=== PATIENT | female | born 2000 | race Caucasian/White ===

== ENCOUNTER 2024-01-24 07:52 | Outpatient (CLI) | payer BC, SELFPAY | END 2024-01-24 07:53 | disposition home or self-care (01) | PROVIDERS: PCP Pediatrics; Visit Provider Obstetrics & Gynecology | DX: N92.6 Irregular menstruation, unspecified (principal) | CPT/HCPCS: 36415; 85014; 85018; 86850; 86900; 86901 ==

== ENCOUNTER 2024-02-01 00:12 | Day surgery (SDC) | payer BC, OTHER, SELFPAY ==
[2024-01-23 14:27] VITALS: BMI 23.1
--- NOTE | 2024-01-23 14:34 | PC.NURSE ---
Report to the Outpatient Waiting Room, entrance under the green pavilion located off [facility], at time _0600_ on date _[id number]_. Planned Procedure Time: _0730_.? Time changes happen often and if your time is changed the preop area will call you the afternoon before. - You and your visitor will be asked to self-screen and do not enter if you have any COVID symptoms. Please call surgeon if you need to reschedule. - A mask is optional within the hospital at this time. Patients may have clear liquids (water, carbonated beverages, clear teas, apple juice) until 3 hours prior to surgery with a maximum of 20 ounces. - No food from midnight until time of surgery and no smoking. This includes no chewing gum, candy or mints. Take only the following medications with a SIP of water on the morning of surgery: ___None DO NOT STOP ANY OF YOUR OTHER PRESCRIPTION MEDICATIONS PRIOR TO SURGERY EXCEPT THE FOLLOWING Medications to discontinue per physician ____None Please no make-up, nail hebrew, hairspray, perfume, deodorant, or body powder the day of surgery.? No jewelry (including any body piercings) or valuables the day of surgery, leave them at home.? Please take a shower or bath the night before, or the morning of, surgery with an antibacterial soap.? Wear comfortable, loose fitting clothing.? - Jewelry must be removed prior to entering the operating room.? Rings and piercings that are not removed may be cut off. - The hospital will not accept responsibility for valuables.? - Please leave all valuables, including medications, at home the day of surgery. If you are going home after surgery, a licensed goat driver must drive you home.? - NO public transportation without another adult if you receive anesthesia. - We recommend that an adult stay with you for 24 hours following discharge. - We also recommend that you do not drive, make important decision, drink alcoholic beverages, or take any drugs that were not prescribed by your health care provider for at least 24 hours after your discharge time. Follow any additional instructions given to you from your surgeon. Telephone instructions given to _Grace__and asked if any additional questions and then verbalized understanding. Patient advised to call surgeon office or pre surgery nurse liaison [phone] if any additional questions.
--- NOTE | 2024-01-31 06:49 | PM.IMHP ---
H&P: HPI History of Present Illness Date/Time: 01/31/24 06:49 Chief Complaint: irregular bleeding and pelvic pain Narrative: 23-year-old 0 admitted for hysteroscopy dilatation curettage and laparoscopy. She has had negative imaging she has heavy periods dyspareunia with negative STD testing etc. risks and benefits reviewed including min exclusive of aspiration pneumonia bleeding transfusion infection perforation injury to bowel bladder ureters or internal organs with need for open laparotomy she received the ACOG handout entitled laparoscopy as well as hysteroscopy dilatation curettage respectively. She had all questions answered. She asked to proceed [facility] Social History Social History Smoking status: Never smoker Alcohol intake: current Living arrangements: with family Spiritual care concerns: No Meds Home Medications and Allergies Home Medications ?Medication ?Instructions ?Recorded ?Confirmed ?Type No Home Medications 01/23/24 01/23/24 History Allergies Allergy/AdvReac Type Severity Reaction Status Date / Time No Known Allergies Allergy Unverified 01/23/24 14:26 Exam Const: General: cooperative, healthy appearing and comfortable Nutritional Appearance: average body habitus HENMT: Head: normal to inspection Chest: Chest palpation & inspection: normal inspection of the chest Resp: Effort & Inspection: normal respiratory effort Cardio: Rate: regular rate Rhythm: regular rhythm Heart sounds: S1 normal heart sound present and S2 normal heart sound present GI: Inspection: normal to inspection : External Female Exam: normal external appearance Speculum Exam - Vagina: normal appearance of the vagina Speculum Exam - Cervix: normal appearance of the cervix Bimanual exam- vagina & uterus: Cervical tenderness present Bimanual Exam- Adnexa, other: tender bilaterally Assessment and Plan Assessment and plan (1) Pelvic pain: Code(s): R10.2 - Pelvic and perineal pain Status: Acute (2) Excessive bleeding: Code(s): R58 - Hemorrhage, not elsewhere classified Status: Acute Plan proceed with laparoscopy hysteroscopy and dilatation and curettage
[2024-02-01] VITALS (8 sets, daily range): BP systolic 102–127; BP diastolic 52–74; PULSE 56–96; RESP 12–20; TEMP 36–36.3; O2SAT 98–100
--- NOTE | 2024-02-01 05:32 | P.PNAN_ITS ---
Anes - Eval Pre Procedure Procedure: Operation Date: 02/01/24 07:30 Proposed Procedures p Diagnostic Laparoscopy, - Alfredo Almendarez MD s Hysteroscopy Dilation and Curettage - Alfredo Almendarez MD Date/Time: 02/01/24 05:32 Pre Op Diagnosis: Pelvic pain, dysmenorrhea, heavy bleeding, Patient Data Age: 23 Gender: F Height: 1.8 m Weight: 75 kg Allergies Allergy/AdvReac Type Severity Reaction Status Date / Time No Known Allergies Allergy Unverified 01/23/24 14:26 Home Medications ?Medication ?Instructions ?Recorded ?Confirmed ?Type No Home Medications 01/23/24 01/23/24 History Patient hx anesthesia problems: none Family hx anesthesia problems: none Results Review: All pre-operative results and documents have been reviewed as part of the pre- operative evaluation. [facility] Social History Social History Smoking status: Never smoker Alcohol intake: current Living arrangements: with family Spiritual care concerns: No Exam Day of Procedure 02/01/24 05:32
--- NOTE | 2024-02-01 06:32 | WPDHPUPDATE1 ---
History and Physical Update Update Date/Time: 02/01/24 06:32 History and Physical has been reviewed, including an updated exam of the patient. There are NO changes in the patient's condition. Risks, benefits, and alternatives have been discussed and questions answered. Patient agrees to proceed with procedure.
--- NOTE | 2024-02-01 06:56 | P.PNAN_ITS ---
Anes - Initial Pre Proc Eval Procedure: Operation Date: 02/01/24 07:30 Proposed Procedures p Diagnostic Laparoscopy, - Alfredo Almendarez MD s Hysteroscopy Dilation and Curettage - Alfredo Almendarez MD Date/Time: 02/01/24 06:56 Surgeon: Alfredo Almendarez MD Pre Op Diagnosis: Pelvic pain, dysmenorrhea, heavy bleeding, Patient Data Age: 23 Gender: F Height: 1.8 m Weight: 75 kg Allergies Allergy/AdvReac Type Severity Reaction Status Date / Time No Known Allergies Allergy Unverified 01/23/24 14:26 Home Medications ?Medication ?Instructions ?Recorded ?Confirmed ?Type hydrocodone 5 mg-acetaminophen 325 1 tablet PO Q4H PRN pain #20 tabs 02/01/24 Rx mg tablet Patient hx anesthesia problems: none Family hx anesthesia problems: none Results Review: All pre-operative results and documents have been reviewed as part of the pre- operative evaluation. [facility] Social History Social History Smoking status: Never smoker Alcohol intake: current Living arrangements: with family Spiritual care concerns: No Anes - Eval Final PreProcedure Day of Procedure 02/01/24 06:56 Patient weight: normal Heart: regular rate and rhythm Lungs: clear to auscultation Airway: Mallampati scale class II Neurological: alert and oriented Last oral intake: >/= 8 hours ASA classification: I Emergent: no Anesthetic plan: proceed Anesthesia type and monitoring: general ETT and standard monitoring Results Review: All pre-operative results and documents have been reviewed as part of the pre- operative evaluation. Informed Consent: The patient's anesthetic plan and its attendant risks and benefits were discussed with the patient/family/POA. Questions were solicited and answers provided to the satisfaction of the patient/family/POA.
[2024-02-01] MEDS: LACTATED RINGERS 1,000 ML 30 ML IV CONT ×2 (07:00→08:06)
[2024-02-01] MEDS: KETOROLAC 15 MG/ML VIAL (*BKC) IV PUSH (07:00)
[2024-02-01] MEDS: ACETAMINOPHEN 500 MG TABLET 1000 MG PO (07:00)
--- NOTE | 2024-02-01 08:01 | W.PM.PROC2 ---
Procedure Note - Detailed Date of Procedure 02/01/24 Pre-op Diagnosis Pelvic pain, dysmenorrhea, heavy bleeding, Post-op Diagnosis Other (Pelvic pain/dysmenorrhea/heavy bleeding/endometriosis) Procedure Performed Laparoscopy with destruction lateral areas of endometriosis hysteroscopy/dilatation curettage Surgeon Alfredo Almendarez MD Anesthesia General Indications 23-year-old female with unrelenting pain irregular bleeding refractory to medical therapy Findings [id number] of serosanguineous fluid in cul-de-sac. Endometriosis along the right left uterus sacral ligaments. Endometriosis on the right ovary. Normal-appearing appendix. Gallbladder liver edge. Description of Procedure Patient was prepped and draped in the sterile fashion placed in dorsal position. Under excellent general trach anesthesia speculum placed posterior vagina. The anterior lip of the cervix grasped with a single-tooth tenaculum. The Keating's cannula inserted the cervix and attached to the single-tooth. This would be used later for uterine manipulation. The bladder was emptied of clear urine the weighted speculum was removed. The gloves were changed. An infraumbilical incision made the Veress needle passed in the abdomen. Abdomen filled with CO2 gas [id number]. The 5mm trocar advanced under direct visualization assuring no injury. Patient placed in Trendelenburg and a suprapubic incision made. The 5mm trocar advanced under direct visualization assuring no injury. About 30cc of serosanguineous fluid was seen in the cul-de-sac and this was removed and then irrigated clean. Multiple areas of endometriosis were seen uterosacral ligament. These were point cauterized at 30 w per 2nd monopolar cautery. The right ovary couple spots endometriosis the at and 8 they were cauterized and destroyed. Irrigation undertaken until clear no other abnormalities were seen. The appendix and gallbladder and liver edge all appeared within normal limits. The lower site removed. The gas removed from the abdomen. The upper site removed. The incisions closed with 4-0 Monocryl and glue. Attention was then turned to the hysteroscopy portion The uterus sounded to 7 and cm. Serial dilatation with fragmented dilators performed followed by passage of the 5mm visualizing hysteroscope using normal saline as visualizing medium. Each fallopian tube os could be seen and appeared within normal limits and there were no abnormality seen in the uterus. The uterus was then scraped over the entire 360? until a good grating sound was heard. The instruments withdrawn the patient was awakened. She went to recovery in satisfactory condition. All sponge, needle, instrument counts were correct. There were no immediate complications noted Estimated Blood Loss 5 Packing No Pathology Yes (Endometrial curettings) Complications No immediate complications Condition Stable Disposition PACU
[2024-02-01] MEDS: oxyCODONE HCL (*CRX) 5 MG TAB IR PO (08:49)
--- OUTSIDE RECORDS SUMMARY | 2024-02-08 00:40 | XMS_ITS | Encounter Summary ---
Author Organization [facility] Address [address] [place] [address] Care Team Providers Care Director Of Resource Development Name Role Phone Gloria Mancera MD Primary Care Provider Reason for Visit * Reason Comments Establish Care Encounter Details Date Type Department Care Team (Late st Contact Info) Description 09/18/2023 9:00 AM CDT Office Visit [facility] Medical [facility] - Family Medicine [address] [phone] Gloria Mancera MD [address] [place] [address] Encounter to establish care (Primary Dx); Healthcare maintenance Social History Tobacco Use Types Packs/Day Years Used Date Smoking Tobacco: Never Smokeless Tobacco: Never Tobacco Cessation:Counseling Given: No Alcohol Use Standard Drinks/Week Comments Yes 0 (1 standard drink = 0.6 oz pur e alcohol) occationally, few x a month PHQ-2 Answer Date Recorded Patient Health Questionnaire-2 Score 0 09/18/2023 Sex and Gender Information Value Date Recorded Sex Assigned at Not on file Gender Identity Not on file Sexual Orientation Not on file documented as of this encounter Last Filed Vital Signs Vital Sign Reading Time Taken Comments Blood Pressure 103/68 09/18/2023 9:20 AM CDT Pulse 69 09/18/2023 9:20 AM CDT Temperature 36.4 ??C (97.5 ??F) 09/18/2023 9:20 AM CD T Respiratory Rate - - Oxygen Saturation 97% 09/18/2023 9:20 AM CDT Inhaled Oxygen Concentration - - Weight 77.2 kg (170 lb 3.2 oz) 09/18/2023 9:20 A M CDT Height 180.3 cm (5' 11 ) 09/18/2023 9:20 AM CDT Body Mass Index 23.74 09/18/2023 9:20 AM CDT documented in this encounter Patient Instructions * Patient Instructions* Gloria Mancera MD - 09/18/2023 9:27 AM CDT It is important for you to feel that you have received the best care possible today. If for any reason you feel your care was not exceptional please let us know. You may do this by calling and requesting to leave a message for me to return your call or you may also receive a satisfaction survey viae-mail or U.S. Mail. I encourage you to respond to this confidential survey as your feedback helps us provide that exceptional care you deserve. It is very important that you compare your medication list from your visit with actual medications you have at home. If there are any discrepancies or you are uncertain what a certain medication is and why you are taking it please let us know as soon as possible. Thank you for choosing us to provide your healthcare needs! PETTY Caruso Recommended to continue healthy lifestyle Recommended exercises 150 minutes per week Patient will continue visits with her OB and G Obtain fasting labs documented in this encounter Progress Notes * Gloria Mancera MD - 09/18/2023 10:18 AM CDT Date: 09/18/2023 Pt Name: Lillie Ohara : 2000 AGE: [age] year old SEX: female CC: Establish Care History of Present Illness:22 year oldyr old, female that presents to this office to establish carewith new primary care physician. Patient in usual state of health. Preventive-patient states that had last Pap smear with OB and G Dr. Nelsy Denise summer last year, currently patient is not sexually active, periods are regular lasting 5 days profuse every 28 days, patient sees dentist/dental cleaning 2 times a year, patient does not use contact lenses or glasses. 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 No Known Allergies There is no problem list on file for this patient. No current outpatient medications on file. No current facility-administered medications for this visit. Past Medical History: Diagnosis Date Injury of face and neck 04/27/08 Menorrhagia with irregular cycle 10/25/2015 Preoperative examination, unspecified 06/11/07 dental Routine infant or child health check 05/14/07 Past Surgical History: Procedure Laterality Date Cyst Removal thyroid Social History Socioeconomic History Marital status: Single Spouse name: Not on file Number of children: 0 Years of education: Not on file Highest education level: Not on file Occupational History Not on file Tobacco Use Smoking status: Never Smokeless tobacco: Never Vaping Use Vaping Use: Never used Substance and Sexual Activity Alcohol use: Yes Comment: occationally, few x a month Drug use: Never Sexual activity: Not Currently Partners: Male Other Topics Concern Service No Blood Transfusions No Caffeine Concern No Occupational Exposure No Hobby Hazards No Sleep Concern No Stress Concern No Weight Concern No Special Diet No Back Care Not Asked Exercise No Bike Helmet Not Asked Seat Belt Yes Self-Exams Not Asked Social History Narrative Not on file Social Determinants of Health Financial Resource Strain: Not on file Food Insecurity: Not on file Transportation Needs: Not on file Stress: Not on file Housing Stability: Not on file Family History Problem Relation Name Age of Onset None Known Father Allergies Paternal Grandmother The patient's past medical history, family history, social history, current medications, and allergies were reviewed with the patient. ROS: A comprehensive review of systems was negative except as described in HPI. PHYSICAL EXAM: BP 103/68 (BP Location: Left arm, Patient Position: Sitting, BP Cuff Size: Adult) Pulse 69 Temp97.5 ??F (36.4 ??C) (Temporal) Ht 1.803 m (5' 11 ) Wt 77.2 kg (170 lb 3.2 oz) SpO2 97% BP 103/68 (BP Location: Left arm, Patient Position: Sitting, BP Cuff Size: Adult) Pulse 69 Temp97.5 ??F (36.4 ??C) (Temporal) Ht 1.803 m (5' 11 ) Wt 77.2 kg (170 lb 3.2 oz) LMP 08/31/2015 (Exact Date) SpO2 97% BMI 23.74 kg/m?? General appearance: alert, cooperative, no distress Eyes: sclera and conjunctiva clear, EOMI and PERRLA, lids normal Ears: canals clear, tympanic membranes normal, hearing intact to voice Nose: no septal perforation,no discharge Throat:uvula midline, no mucous membrane abnormalities, no exudate Neck: range of motion is intact, no masses, thyroid not enlarged, no adenopathy Lungs: breath sounds normal and symmetric; no rales or wheezes Heart: regular rhythm, normal S1 and S2, without murmurs, gallops or rubs Circulation: Carotid and DP pulses are intact and symmetrical,no carotid bruits Abdomen: soft without mass, non-tender, with normal bowel sounds, No hepatosplenomegaly. Extremities: no clubbing, cyanosis or edema Musculosketal :range of motion normal without inflammation, effusion or deformity,no muscle atrophy Neurologic: Cranial nerves [id number], DTR symmetrical Skin: Tattoos Results : No results found for this visit on 09/18/23. ASSESSMENT: ICD-10-CM 1. Encounter to establish care Z00.00 2. Healthcare maintenance Z00.00 CBC WITH DIFFERENTIAL COMPREHENSIVE METABOLIC PANEL LIPID PROFILE HEPATITIS C ANTIBODY W RFLX PCR HIV-1 HIV-2 ANTIBODY + HIV P24 AG PANEL PLAN: Discussed routine health maintenance: labs. Discussed healthy lifestyle choices: diet and exercise. Orders Placed This Encounter CBC WITH DIFFERENTIAL COMPREHENSIVE METABOLIC PANEL LIPID PROFILE HEPATITIS C ANTIBODY W RFLX PCR HIV-1 HIV-2 ANTIBODY + HIV P24 AG PANEL Return in about 1 year (around 09/17/2024), or if symptoms worsen or fail to improve, for annual physical exam . Patient Instructions It is important for you to feel that you have received the best care possible today. If for any reason you feel your care was not exceptional please let us know. You may do this by calling and requesting to leave a message for me to return your call or you may also receive a satisfaction survey viae-mail or U.S. Mail. I encourage you to respond to this confidential survey as your feedback helps us provide that exceptional care you deserve. It is very important that you compare your medication list from your visit with actual medications you have at home. If there are any discrepancies or you are uncertain what a certain medication is and why you are taking it please let us know as soon as possible. Thank you for choosing us to provide your healthcare needs! PETTY Caruso Recommended to continue healthy lifestyle Recommended exercises 150 minutes per week Patient will continue visits with her OB and G Obtain fasting labs Gloria Mancera MD Disclaimer: This dictation was created using voice recognition software. I have made every reasonable attempt to avoid errors. Please note that there may be variance in spelling, grammar and syntax because of the voice recognition system and hardware. If there are any concerns please contact Yvette Reddydirectly * Teri Wharton MA - 09/18/2023 9:26 AM CDT Images from the original note were not included. FLORENTIN-7 {Vanishing tip- Click here to Update FLORENTIN-7 then refresh note (Ctrl+F11) 09/18/2023 9:23 AM FLORENTIN-7 Nervous? 1 Control worrying? 1 Worry too much? 1 Trouble relaxing? 1 Restless? 1 Irritable? 0 Afraid? 0 Total Score (0-4: Minimal; 5-9: Mild; 10-14: Moderate; 15 or greater: Severe) 5 Screenings Future Falls: Depression: PHQ-2:Patient Health Questionnaire-2 Score: 0 PHQ-9: documented in this encounter Plan of Treatment Scheduled Orders Name Type Priority Associated Diagnoses Orde r Schedule CBC WITH DIFFERENTIAL Lab Routine Healthcare maintenance Ordered: 09/18/2023 COMPREHENSIVE METABOLIC PANEL Lab Routine Healthcare maintenance Ordered: 09/18/2023 LIPID PROFILE Lab Routine Healthcare maintenance Ordered: 09/18/2023 HEPATITIS C ANTIBODY W RFLX PCR Lab Routine Healthcare maintenance Ordered: 09/18/2023 HIV-1 HIV-2 ANTIBODY + HIV P24 AG PANEL Lab Routine Healthcare maintenance Ordered: 09/18/2023 documented as of this encounter Goals Goal Patient Goal Type Associated Problems Recent Progress Patient-Stated? Author Use safety retraint in car Lifestyle On track( 020 10:10 AM CDT) No Gaye Westbrook RN documented as of this encounter Visit Diagnoses Diagnosis Encounter to establish care- Primary Reserved for inherently not codable concepts WITHOUT codable children Healthcare maintenance Routine general medical examination at a health care facility documented in this encounter Care Teams Director Of Resource Development Relationship Specialty Start Date End Date Gloria Mancera MD [address] [place] [address] PCP - General Internal Medicine 09/18/23 documented as of this encounter
--- OUTSIDE RECORDS SUMMARY | 2024-02-08 00:40 | XMS_ITS | Encounter Summary ---
Author Organization [facility] Address [address] [place] [address] Care Team Providers Care Concrete Pump Operator Name Role Phone Ivis Montana MD Unavailable Antonieta Moon MD Primary Care Provider [phone] Reason for Visit * Reason Onset Date Comments Patient Requested Call 08/16/2015 Encounter Details Date Type Department Care Team (Late st Contact Info) Description 08/16/2015 Telephone [facility] - Pediatrics [address] [place] [phone] Antonieta Moon MD [address] [place] [phone] Patient Requested Call Social History Tobacco Use Types Packs/Day Years Used Date Smoking Tobacco: Never Assessed Sex and Gender Information Value Date Recorded Sex Assigned at Not on file Gender Identity Not on file Sexual Orientation Not on file documented as of this encounter Miscellaneous Notes * Telephone Encounter - Tata Saab RN - 08/16/2015 10:44 AM CDT Pt has been on OC x 3 months. Still having very irregular, heavy, long periods. Bleeding lasting upto 28 days at a time. Feeling fatigued, dizzy, sob. Pale colored. Appt made for this afternoon. * Telephone Encounter - SimonLaura gutierrez - 08/16/2015 9:50 AM CDT Mother is calling because patient started her period oct. She was seen for heavy bleeding and started on BC medication. Patient is still having irregular periods lasting a long time. Mother has noticed patient being really pale and acting fatigue. Mom would like to know if she needs to have an appointment or just labs drawn, please advise. Mother has been keeping her hydrated. symptoms include Fatigue Pale skin Dizziness Eyes are sinking in. documented in this encounter Plan of Treatment Not on file documented as of this encounter Goals Goal Patient Goal Type Associated Problems Recent Progress Patient-Stated? Author Use safety retraint in car Lifestyle On track( 020 10:10 AM CDT) No Gaye Westbrook RN documented as of this encounter Visit Diagnoses Not on filedocumented in this encounter Care Teams Concrete Pump Operator Relationship Specialty Start Date End Date Ivis Montana MD PCP - Pediatrics 02/23/09 11/10/19 Antonieta Moon MD PCP - General Pediatrics 01/05/11 09/17/23 documented as of this encounter
--- OUTSIDE RECORDS SUMMARY | 2024-02-08 00:40 | XMS_ITS | Encounter Summary ---
Author Organization [facility] Address [address] [place] [address] Care Team Providers Care Ostomy Nurse Name Role Phone Ivis Montana MD Unavailable Antonieta Moon MD Primary Care Provider [phone] Encounter Details Date Type Department Care Team (Latest Contact Info) Description 11/07/2019 Travel Social History Tobacco Use Types Packs/Day Years Used Date Smoking Tobacco: Never Assessed Sex and Gender Information Value Date Recorded Sex Assigned at Not on file Gender Identity Not on file Sexual Orientation Not on file COVID-19 Exposure Response Date Recorded In the last month, have you been in contact with someone who was confirmed or suspected to have Coronavirus / COVID-19? No / Unsure 11/07/2019 2:25 PM CDT documented as of this encounter Plan of Treatment Not on file documented as of this encounter Goals Goal Patient Goal Type Associated Problems Recent Progress Patient-Stated? Author Use safety retraint in car Lifestyle On track( 020 10:10 AM CDT) No Gaye Westbrook RN documented as of this encounter Visit Diagnoses Not on filedocumented in this encounter Care Teams Ostomy Nurse Relationship Specialty Start Date End Date Ivis Montana MD PCP - Pediatrics 02/23/09 11/10/19 Antonieta Moon MD PCP - General Pediatrics 01/05/11 09/17/23 documented as of this encounter
--- OUTSIDE RECORDS SUMMARY | 2024-02-08 00:40 | XMS_ITS | Encounter Summary ---
Author Organization [facility] Address [address] [place] [address] Care Team Providers Care Associate Director Qa Name Role Phone Antonieta Moon MD Primary Care Provider [phone] Reason for Visit * Reason Onset Date Comments Record Request 03/06/2023 Encounter Details Date Type Department Care Team (Late st Contact Info) Description 03/06/2023 Telephone [facility] Medical [facility] - Pediatrics [address] [place] [phone] Antonieta Moon MD [address] [place] [phone] Record Request Social History Tobacco Use Types Packs/Day Years Used Date Smoking Tobacco: Never Assessed Sex and Gender Information Value Date Recorded Sex Assigned at Not on file Gender Identity Not on file Sexual Orientation Not on file documented as of this encounter Miscellaneous Notes * Telephone Encounter - Kaur Delgadillo - 03/06/2023 12:46 PM EDGE SANDER Patient called requesting immunization record to be sent via [employer]. Immunization record was sent on 03/06/2023. SANDER documented in this encounter Plan of Treatment Not on file documented as of this encounter Goals Goal Patient Goal Type Associated Problems Recent Progress Patient-Stated? Author Use safety retraint in car Lifestyle On track( 020 10:10 AM CDT) No Gaye Westbrook RN documented as of this encounter Visit Diagnoses Not on filedocumented in this encounter Care Teams Associate Director Qa Relationship Specialty Start Date End Date Antonieta Moon MD PCP - General Pediatrics 01/05/11 09/17/23 documented as of this encounter
--- OUTSIDE RECORDS SUMMARY | 2024-02-08 00:40 | XMS_ITS | Encounter Summary ---
Author Organization [facility] Address [address] [place] [address] Care Team Providers Care Registry Nurse Name Role Phone Ivis Montana MD Unavailable Antonieta Moon MD Primary Care Provider [phone] Reason for Visit * Reason Comments Headache c/o headache started yesterday. Front center of forehead. Tylenol no help. Cough cough this morning. Loose phlegmy cough. No nasal s/s. No fever. Encounter Details Date Type Department Care Team (Late Contact Info) Description 03/25/2012 3:45 PM SUPERVISOR TUMBLERS Office Visit [facility] - Pediatrics [address] [place] [phone] Antonieta Moon MD [address] [place] [phone] Headache (Primary Dx); Cough Social History Tobacco Use Types Packs/Day Years Used Date Smoking Tobacco: Never Assessed Sex and Gender Information Value Date Recorded Sex Assigned at Not on file Gender Identity Not on file Sexual Orientation Not on file documented as of this encounter Last Filed Vital Signs Vital Sign Reading Time Taken Comments Blood Pressure - - Pulse - - Temperature 37.4 ??C (99.4 ??F) 03/25/2012 3:59 PM CS T Respiratory Rate - - Oxygen Saturation - - Inhaled Oxygen Concentration - - Weight 38.9 kg (85 lb 12.8 oz) 03/25/2012 3:59 P M SUPERVISOR TUMBLERS Height - - Body Mass Index - - documented in this encounter Progress Notes * Antonieta Moon MD - 03/26/2012 3:00 PM CST Lillie Ohara is a 11 y.o. female who presents today for a complaint of headache and cough. Headachestarted yesterday. Sharp pain to front center of pain. Cough started today. Described as phlemy sounding. Associated with fever? No Associated with URI sx? No Post nasal drainage? No Wheezing? No Appetite decreased. Intervention tried: none PE: Gen-well appearing HEENT- throat without erythema or cobblestoning. Tm's pearly Neck- supple, no LAD Resp-CTA CV nL S1S2 without murmur Neuro: CN intact, nL finger to nose, nL strength in all extrem, Rhomberg negative meningeal signs negative Impression: 1. Headache 2. Cough ---viral? Plan: Sx care with 400 mg ibuprofen, increase fluids. RVISOR TUMBLERS documented in this encounter Plan of Treatment Not on file documented as of this encounter Visit Diagnoses Diagnosis Headache(784.0)- Primary Headache Cough documented in this encounter Care Teams Registry Nurse Relationship Specialty Start Date End Date Ivis Montana MD PCP - Pediatrics 02/23/09 11/10/19 Antonieta Moon MD PCP - General Pediatrics 01/05/11 09/17/23 documented as of this encounter
--- OUTSIDE RECORDS SUMMARY | 2024-02-08 00:40 | XMS_ITS | Encounter Summary ---
Author Organization [facility] Address [address] [place] [address] Care Team Providers Care Community Development Specialist Name Role Phone Ivis Montana MD Unavailable Antonieta Moon MD Primary Care Provider [phone] Reason for Visit * Reason Comments Sore Throat Encounter Details Date Type Department Care Team (Late st Contact Info) Description 02/24/2016 4:15 PM EYEGLASS ASSEMBLER Office Visit [facility] - Pediatrics [address] [place] [phone] Antonieta Moon MD [address] [place] [phone] Acute pharyngitis, unspecified etiology (Primary Dx) Social History Tobacco Use Types Packs/Day Years Used Date Smoking Tobacco: Never Assessed Sex and Gender Information Value Date Recorded Sex Assigned at Not on file Gender Identity Not on file Sexual Orientation Not on file documented as of this encounter Progress Notes * Antonieta Moon MD - 02/24/2016 4:29 PM CST Lillie Ohara. 15 y.o., female, here for evaluation of sore throat. Symptoms started last night. Fever: No Runny Nose: No Congestion: No Cough: No, Headache: No Abd Pain: No Rash: No Sleep: good Appetite: fair Fluids: good Sick contacts with Strep: No Medications: reviewed PE: Alert NAD SHEENT: Skin: no observable rash Ears: Left: Normal Right: Normal Throat:injected Tonsils: mildly red, no exudates Neck: supple, mildy tender ant LAD Heart: normal S1, S2, no murmurs or gallops. Lungs: Clear to auscultation and Normal breath sounds bilaterally Rapid Strep: negative Impression: Pharyngitis--likely viral Plan: supportive care Throat culture sent Fever control and encourage fluids. Follow up prn. LASS ASSEMBLER documented in this encounter Plan of Treatment Scheduled Orders Name Type Priority Associated Diagnoses Orde r Schedule CULTURE AEROBIC Microbiology Routine Acute pharyngitis, unspecified etiology Ordered: 02/24/2016 documented as of this encounter Goals Goal Patient Goal Type Associated Problems Recent Progress Patient-Stated? Author Use safety retraint in car Lifestyle On track( 020 10:10 AM CDT) No Gaye Westbrook RN documented as of this encounter Procedures Procedure Name Priority Date/Time Associated Diagnosis Comments STREP A SCREEN - POINT OF CARE (AMB) Routine 02/24/2016 4:15 PM EYEGLASS ASSEMBLER Acute pharyngitis, unspecified etiology documented in this encounter Results * STREP A SCREEN - POINT OF CARE (AMB) (02/24/2016 4:15 PM EYEGLASS ASSEMBLER) Strep A Rapid POCT Negative Negative Strep A Internal Control Present Other ENTIRE THROAT (SURFACE REGION OF NECK) / Unknown 02/24/2016 4:15 PM EYEGLASS ASSEMBLER Antonieta Moon MD LAB - POINT OF CARE ORDERABLES documented in this encounter Visit Diagnoses Diagnosis Acute pharyngitis, unspecified etiology- Primary documented in this encounter Care Teams Community Development Specialist Relationship Specialty Start Date End Date Ivis Montana MD PCP - Pediatrics 02/23/09 11/10/19 Antonieta Moon MD PCP - General Pediatrics 01/05/11 09/17/23 documented as of this encounter
--- OUTSIDE RECORDS SUMMARY | 2024-02-08 00:40 | XMS_ITS | Encounter Summary ---
Author Organization [facility] Address [address] [place] [address] Care Team Providers Care Chemical Research Engineer Name Role Phone Ivis Montana MD Unavailable Antonieta Moon MD Primary Care Provider [phone] Reason for Visit * Reason Comments School Physical 6th Encounter Details Date Type Department Care Team (Late st Contact Info) Description 08/04/2013 11:00 AM CDT Office Visit [facility] Medical [facility] - Pediatrics [address] [place] [phone] Antonieta Moon MD [address] [place] [phone] Well child check (Primary Dx); Need for prophylactic vaccination and inoculation against other specified disease; Need for prophylactic vaccination with combined luxwhyjonb-jlnzfag-ir rtussis (DTP) vaccine Social History Tobacco Use Types Packs/Day Years Used Date Smoking Tobacco: Never Assessed Sex and Gender Information Value Date Recorded Sex Assigned at Not on file Gender Identity Not on file Sexual Orientation Not on file documented as of this encounter Last Filed Vital Signs Vital Sign Reading Time Taken Comments Blood Pressure 104/56 08/04/2013 11:36 AM CDT Pulse 72 08/04/2013 10:59 AM CDT Temperature - - Respiratory Rate - - Oxygen Saturation - - Inhaled Oxygen Concentration - - Weight 48.3 kg (106 lb 6.4 oz) 08/05/19 14 10:59 AM CDT Height 164.5 cm (5' 4.75 ) 08/04/2013 1 0:59 AM CDT Body Mass Index 17.84 08/04/2013 10:59 AM CDT Body Mass Index Percentile 48.68% 08/04 10:59 AM CDT Growth Chart: CDC (Girls, 2- 20 Years) documented in this encounter Patient Instructions * Patient Instructions* Tata Saab RN - 08/04/2013 11:45 AM CDT YOUR GROWING PRETEEN CHILD Child???s Name: Lillie Ohara Today???s Date: 08/04/2013 32.5% systolic and 22.1% diastolic of BP percentile by age, sex, and height. BP 104/56 Pulse 72 Wt 48.263 kg (106 lb 6.4 oz) BMI 17.84 kg/m2 Wt Readings from Last 3 Encounters: 08/04/13 48.263 kg (106 lb 6.4 oz) (79 %*, Z = 0.79) 03/25/12 38.919 kg (85 lb 12.8 oz) (71 %*, Z = 0.57) 07/20/11 41.277 kg (91 lb) (89 %*, Z = 1.21) * Growth percentiles are based on CDC 2-20 Years data. Ht Readings from Last 3 Encounters: 08/04/13 1.645 m (5' 4.75 ) (98 %*, Z = 2.04) 12/06/10 1.461 m (4' 9.5 ) (97 %*, Z = 1.94) 11/22/10 1.48 m (4' 10.25 ) (99 %*, Z = 2.24) * Growth percentiles are based on CDC 2-20 Years data. Body mass index is 17.84 kg/(m^2). 49%ile (Z=-0.03) based on CDC 2-20 Years BMI-for-age data using vitals from 08/04/2013. 79%ile (Z=0.79) based on CDC 2-20 Years [id number] data using vitals from 08/04/2013. 98%ile (Z=2.04) based on CDC 2-20 Years [id number] data using vitals from 08/04/2013. IMMUNIZATIONS At the time of high school physical your child may receive a Tdap booster. Other immunizations which we recommend, but that are not required are Menactra (protects again one type of bacterial meningitis), Gardisil (protects girls and women against Human Papilloma Virus), and Hepatitis A vaccine if not already given. PHYSICAL DEVELOPMENT Typically, girls show signs of pubert 2 years earlier than boys. During early adolescence, most girls experience a rapid growth spurt, changes in fat distribution, and development of secondary sexualcharacteristics such as pubic hair and breasts. For most boys, the early adolescent period guerra the beginning of the biological changes of puberty, including testicular growth, voice changes, and development of acne, pubic hair, and nocturnal emissions. The onset of puberty and rate of sexual development can vary greatly and pre-teens should be reassurred that their own growth and development are normal. During adolescence, some teens engage in physical activity regularly and become fit while other choose sedentary behaviors such as watching TV and playing video games. These behaviors are often predictors of adult lifestyles, so it is important to recognoze these behaviors and refocus their energy into healthier pursuits such as participating in physical activities at school or after school. COGNITIVE AND MORAL DEVELOPMENT Young adolescents have increasing potential for abstract, complex thinking, although their cognition still focuses primarily on the concrete and the present, the here and now. Young teens tend to see individuals and their behaviors in somewhat rigid terms as good or bad, or right or wrong. They have not yet developed an understanding of complex relationships or long-term consequences. SOCIAL/EMOTIONAL DEVELOPMENT Puberty is a time of intense changes in emotions. Young adolescents may display erratic or urrutia behavior, especially with the stressses of academic achievement, sports performance, peer pressure, and changing family relationships. Families need to continue supervising the adolescent and setting appropriate limits. At the same time, they need to affirm their adolescent's growing self-efficacy and promote skills and confidence in decision making. SCHOOL As adolescents make the transition to middle school or high school and have to cope with less adultsupport and greater anonymity, they frequently experience anxiety. Scholastic demands require students to be more organized and efficient. There may be a reduction in overall academic performances for males and females. Truancy and school drop out rates also tend to rise in early adolescence. Some incentives to stay in school include participating in in-school and after-school activities such as sports, music, drama, journalism, or volunteering. School also becomes the primary setting through which peer group standards or expectations are communicated. The attraction of peer groups is a powerful phenomenon. Preparing young adolescents to deal with increasing peer pressure is an important part of health supervison. RISKY BEHAVIOR Although exploration and experimentation, usually in the company of peers, serve important developmental purposes, adolescent experimentation can also have serious health consequences. Experimentation with alcohol and tobacco are significant health concerns during early adolescence. INJURY PREVENTION More than half the injury-related deaths in this age group involve motor vehicles, with the adolscent as passenger, pedestrian, or cyclist. Few young adolescents take measures to reduce their risk ofinjury. It is important for adolescents to always wear their safety belt and helmet. RECOMMENDED READING ON PUBERTY FOR GIRLS The care and Keeping of you by [employer]. documented in this encounter Progress Notes * Antonieta Moon MD - 08/04/2013 11:00 AM CDT SCHOOL AGE [facility] Nurse Note Parental Concerns: Hormonal changes.--had stomach cramps and then breast tenderness and nausea for 1 day a couple weeks ago Diet: Milk 2%, 8 ounces per day.+cheese, yogurt Vegetables: good, fruits: good, meats: good, Dental: Tooth brushing twice daily: Yes Regular dental visits: Yes Concerns re: Hearing / Vision no //////////////////////////////////////////////////////////////////////////////// ////////////////////////////////////////// Note: Phx:anxiety Medications: none Exercise/Sports: Dance With exercise, is there Chest pain? No, Shortness of breath? No, Dizziness? No Problems/Injuries to any joints? No Hx of concussion? No Fhx of sudden cardiac ? No School: Grade:6, Grades: good ROS: Stomachaches: No Headaches: No Constipation/Diarrhea: No Girls: Menarche no Physical Exam: Wt Readings from Last 3 Encounters: 08/04/13 48.263 kg (106 lb 6.4 oz) (79 %*, Z = 0.79) 03/25/12 38.919 kg (85 lb 12.8 oz) (71 %*, Z = 0.57) 07/20/11 41.277 kg (91 lb) (89 %*, Z = 1.21) * Growth percentiles are based on CDC 2-20 Years data. Ht Readings from Last 3 Encounters: 08/04/13 1.645 m (5' 4.75 ) (98 %*, Z = 2.04) 12/06/10 1.461 m (4' 9.5 ) (97 %*, Z = 1.94) 11/22/10 1.48 m (4' 10.25 ) (99 %*, Z = 2.24) * Growth percentiles are based on CDC 2-20 Years data. 91.3% systolic and 34.3% diastolic of BP percentile by age, sex, and height. 79%ile (Z=0.79) based on CDC 2-20 Years [id number] data using vitals from 08/04/2013. 98%ile (Z=2.04) based on CDC 2-20 Years [id number] data using vitals from 08/04/2013. BP 123/60 Pulse 72 Wt 48.263 kg (106 lb 6.4 oz) BMI 17.84 kg/m2 GENERAL: Alert, NAD EYES: PERRLA, EOMI, red reflex bilaterally EARS: TM's wnl NOSE: nasal passages clear NECK: supple, no masses, no lymphadenopathy RESP: clear to auscultation bilaterally CV: RRR, normal S1/S2, no murmurs, clicks, or rubs. ABD: soft, nontender, no masses, no hepatosplenomegaly, normal bowel sounds : normal female exam, Ruben III EXTREMITIES: Full range of motion of all extremities SPINE: Straight SKIN: no rashes or lesions Impression: 1. Well child with normal growth and development. Plan: Anticipatory guidance discussed included nutrition, safety, dentist, limiting media, exercise. Vaccines: Meningococcal, TDaP BMI> 85%: No Classification of weight: healthy BMI trajectory: a decrease Blood Pressure interpretation:recheck normal Follow up in 1 year. documented in this encounter Plan of Treatment Not on file documented as of this encounter Visit Diagnoses Diagnosis Well child check- Primary Routine or child health check Need for prophylactic vaccination and inoculation against other specified disease Need for prophylactic vaccination with combined tkukuewlcf-gqwndve-hkrieutav (DTP) vaccine documented in this encounter Care Teams Chemical Research Engineer Relationship Specialty Start Date End Date Ivis Montana MD PCP - Pediatrics 02/23/09 11/10/19 Antonieta Moon MD PCP - General Pediatrics 01/05/11 09/17/23 documented as of this encounter
--- OUTSIDE RECORDS SUMMARY | 2024-02-08 00:40 | XMS_ITS | Encounter Summary ---
Author Organization [facility] Address [address] [place] [address] Care Team Providers Care Core Feeder Name Role Phone Ivis Montana MD Unavailable Antonieta Moon MD Primary Care Provider [phone] Reason for Visit * Reason Comments Pain Knee Right knee pain Encounter Details Date Type Department Care Team (Late st Contact Info) Description 03/31/2016 1:35 PM MEDICAL DOCTOR - 03/31/2016 2:33 PM MEDICAL DOCTOR Hospital Encounter [facility] [address] [facility] [place] [address] Jayce Chadwick MD [address] [facility] [place] [address] Discharge Disposition: Home or Self Care Social History Tobacco Use Types Packs/Day Years Used Date Smoking Tobacco: Never Assessed Sex and Gender Information Value Date Recorded Sex Assigned at Not on file Gender Identity Not on file Sexual Orientation Not on file documented as of this encounter Discharge Instructions * Patient Instructions* Rosanne Doan MD - 03/31/2016 3:07 PM MEDICAL DOCTOR Images from the original note were not included. Adult and Pediatric Sports Medicine Lillie Ohara 03/31/2016 Thank you for coming in to see us today for your knee pain. This is a school excuse note for today. We recommend that you try the following for your injury: icing, physical therapy exercises and anti-inflammatory medications Please call our clinic to make an appointment if your symptoms are not improving, or if something about your condition significantly changes. [facility] Orthopaedic office contact information: [facility] [address] [place] [address]. [address] [facility] 2nd Floor, [address] [facility] [address] [address] [facility] [place] [address] [facility] [address] [place] [address] [address], [place] [address] Please contact Pablo Araujo (clinical nurse specialist) at or email: [email or web address] if you have any further questions or concerns. Sincerely, Jayce Chadwick MD [email or web address] CAL DOCTOR documented in this encounter Medications at Time of Discharge Medication Sig Dispensed Refills Start Date End Date ferrous sulfate 325 (65 FE) MG tablet Take 1 Tab by mouth daily with food 30 Tab 4 08/17/2015 11/11/2019 hydrocortisone (HYTONE) 2.5 % ointment Apply to affected area 2 times daily Apply sparingly to affected areas 30 g 0 08/16/2015 11/11/2019 ibuprofen (MOTRIN) 200 MG tablet Take 400 mg by mouth every 12 hours as needed for Pain 11/11/2019 norgestimate-ethinyl estradiol (MONONESSA) 0.25-35 MG-MCG tablet Take 1 Tab by mouth once daily 1 Packet 11 05/11/2015 11/11/2019 documented as of this encounter Progress Notes * Jayce Chadwick MD - 03/31/2016 2:33 PM CST Jayce Chadwick MD ORTHOPAEDIC SPORTS MEDICINE [address] [place] [id number] Dept: [phone] Antonieta Moon MD ; Today we had the pleasure of seeing Lillie Ohara in [facility] for evaluation of her right knee injury. Lillie Ohara is a 15 y.o. female who states she has diffuse, anterior knee pain after it popped while walking in the de, Denies any twisting injury. No mechanical symptoms or instability. She is a competitive dancer. The symptoms are activity-related and improved with rest. No fevers, chills,numbness, paresthesias or gross motor weakness. They have tried icing for their symptoms. SANE Score (0-100): 40 Medications Current Outpatient Prescriptions on File Prior to Encounter Medication Sig Dispense Refill ??? hydrocortisone (HYTONE) 2.5 % ointment Apply to affected area 2 times daily Apply sparingly to affected areas 30 g 0 ??? ibuprofen (MOTRIN) 200 MG tablet Take 400 mg by mouth every 12 hours as needed for Pain ??? norgestimate-ethinyl estradiol (MONONESSA) 0.25-35 MG-MCG tablet Take 1 Tab by mouth once daily1 Packet 11 ??? ferrous sulfate 325 (65 FE) MG tablet Take 1 Tab by mouth daily with food 30 Tab 4 No current facility-administered medications on file prior to encounter. Allergies as of 03/31/2016 ??? (No Known Allergies) Past Medical History Diagnosis Date ??? Injury of face and neck 04/27/08 ??? Menorrhagia with irregular cycle 10/25/2015 ??? Preoperative examination, unspecified 06/11/07 dental ??? Routine or child health check 05/14/07 Past Surgical History Procedure Laterality Date ??? Cyst removal thyroid 15 Point review of systems was otherwise negative as reviewed today. Social History Occupational History ??? Not on file. Social History Main Topics ??? Smoking status: Not on file ??? Smokeless tobacco: Not on file ??? Alcohol use: Not on file ??? Drug use: Not on file ??? Sexual activity: Not on file Family History Family History Problem Relation Age of Onset ??? Allergies Paternal Grandmother Physical Exam: The patient is awake, alert, oriented and they are pleasant to speak with. There is no pain with rotation of the right or left hip. There is a negative straight leg raise bilaterally. Gait is antalgic. Evaluation of the uninjured left knee noted no skin lesions, neurovascularly intact. There is no t enderness/swelling/deformity. Ligamentously stable. Full range of motion. Quadriceps strength is 5/5. The right knee is neurovascularly intact with no active skin lesions. There is no effusion. There is tenderness of the quad tendon insertion. Range of motion is unrestricted . Ehsan is negative. Quad strength is 5/5. There is no varus laxity. There is no valgus laxity. There is no posterior sag. McMurrays test is negative. Dial test is negative. The extensor mechanism is intact. The patellar tracks well. Patellar apprehension test is negative. Testing for generalized ligamentous laxity is negative. No J sign. No visual knee deformity. Imaging: knee X-rays images reviewed by me are normal. No fracture or dislocation. Impression: Patellar tendinopathy of left knee, without instability Plan: We recommended that they try the following to treat their injury: icing, physical therapy exercisesand anti-inflammatory medications, rest from dance. She may participate in sports and activities without restrictions as symptoms improve. We will gladly see her back if she is not improving in the future. Please do not hesitate to contact me with questions regarding her or any other patient in the future. Our clinical nurse, Pablo Araujo, can be reached at and by email at [email or web address]. My personal email is [email or web address]. Sincerely, Jayce Chadwick MD CAL DOCTOR documented in this encounter Plan of Treatment Not on file documented as of this encounter Goals Goal Patient Goal Type Associated Problems Recent Progress Patient-Stated? Author Use safety retraint in car Lifestyle On track( 020 10:10 AM CDT) No Gaye Westbrook RN documented as of this encounter Results * XR KNEE 4+ VW RIGHT (03/31/2016 2:41 PM MEDICAL DOCTOR) Anatomical Region Laterality Modality Lower Extremity Radiographic Aarti ging 03/31/2016 5:00 PM MEDICAL DOCTOR Impressions 03/31/2016 5:00 PM MEDICAL DOCTOR Normal. Narrative 03/31/2016 5:00 PM MEDICAL DOCTOR Right knee 4 views History: Pain The bones, soft tissues, and joint spaces are normal. Procedure Note Gaye Sykes MD - 03/31/2016 Right knee 4 views History: Pain The bones, soft tissues, and joint spaces are normal. IMPRESSION Normal. Jayce Chadwick MD DIAGNOSTIC IMAGING O RDERABLES documented in this encounter Visit Diagnoses Diagnosis Right knee pain, unspecified chronicity- Primary Right knee pain, unspecified chronicity documented in this encounter Care Teams Core Feeder Relationship Specialty Start Date End Date Ivis Montana MD PCP - Pediatrics 02/23/09 11/10/19 Antonieta Moon MD PCP - General Pediatrics 01/05/11 09/17/23 documented as of this encounter
--- OUTSIDE RECORDS SUMMARY | 2024-02-08 00:40 | XMS_ITS | Encounter Summary ---
Author Organization [facility] Address [address] [place] [address] Care Team Providers Care Assembler Tractor Name Role Phone Ivis Montana MD Unavailable Antonieta Moon MD Primary Care Provider [phone] Reason for Visit * Reason Comments Menstrual Problem Has been taking OC x 3 months. Still having heavy long periods. Pale. Feeling fatigued, dizzy, headaches. Decreased appetite. Cramping has decreased since started on OC. Encounter Details Date Type Department Care Team (Late Contact Info) Description 08/16/2015 3:20 PM CDT Office Visit [facility] - Pediatrics [address] [place] [phone] Eddi Eric DO [address] [place] [phone] Other fatigue (Primary Dx); Excessive menstruation at puberty; Vaso vagal episode Social History Tobacco Use Types Packs/Day Years Used Date Smoking Tobacco: Never Assessed Sex and Gender Information Value Date Recorded Sex Assigned at Not on file Gender Identity Not on file Sexual Orientation Not on file documented as of this encounter Last Filed Vital Signs Vital Sign Reading Time Taken Comments Blood Pressure 107/66 08/16/2015 3:23 PM CDT Pulse 79 08/16/2015 3:23 PM CDT Temperature - - Respiratory Rate - - Oxygen Saturation - - Inhaled Oxygen Concentration - - Weight 61.2 kg (135 lb) 08/16/2015 3:23 PM CDT Height - - Body Mass Index - - documented in this encounter Progress Notes * Lluvia Zapata RN - 08/20/2015 3:39 PM CDTQuick Note: Gave mother [facility] FOREIGN CLERK # to call to make appt! * Eddi Eric DO - 08/20/2015 3:34 PM CDTQuick Note: Okay can we please give her the number to [facility] peds bariatric surgeon for mom to call. Thanks! * Gaye Ying RN - 08/20/2015 3:18 PM CDTQuick Note: Mom informed of negative results. Mom says that she has not received call as yet from pediatric dairy farm worker for appointment. * Eddi Eric DO - 08/20/2015 1:02 PM CDTQuick Note: Call and tell mom negative mono testing and all other tests for bleeding concerns were normal. * Eddi Eric DO - 08/17/2015 1:32 PM CDTQuick Note: Spoke with mom and started iron supplementation. Will call and other labs are resulted. * Eddi Eric DO - 08/16/2015 3:30 PM CDT Sick Visit Every month. Still in first year of periods. Bleeding out in am. Name: Lillie Ohara Age: 14 y.o. Accompanied By: Mother CC: Chief Complaint Patient presents with ??? Menstrual Problem Has been taking OC x 3 months. Still having heavy long periods. Pale. Feeling fatigued, dizzy, headaches. Decreased appetite. Cramping has decreased since started on OC. HPI: Seen several months ago for heavy prolonged periods. Stated OCP and a little diesel engine tester and cramps are better. But still last a from 7-10 days with once lasting a month. Every month. Still in firstyear of periods. Bleeding out in am. Pills helped with the cramps. Stays hydrated. Now has been very tired. Nauseated and dizzy. For thepast week. Sleeping a lot and sitting around the house. Wants to sleep a lot. MARTÍNEZ- with positional changes. Sometimes lasts awhile some times not. Fever in the middle of this. Not at the beginning. Affecting activities. Wants to be picked up early. Almost faints when standing quickly. positional changes cause dizziness and feeling a little faint. Less appetite- drinking good. No emesis but nausea,no diarrhea. No one else sick. Sleeping 10-12 hours then a several hour nap. Mom also worried aboutEBV. Heavy bleeding at points in periods. lightend a little mom heavy no bleeding disorders known. Cysts on mom's overies. Mom with hysterectomy- cystic problems. No other bleeding problem. OCP- for 3-4 months now and only lightend a little but less cramping. Now on day 2 of period. Stool fine. Tall. Skin fine no acne or facial hair. Does well in school. Current Medications: Current Outpatient Prescriptions Medication Sig Dispense Refill ??? ibuprofen (MOTRIN) 200 MG tablet Take 400 mg by mouth every 12 hours as needed for Pain ??? norgestimate-ethinyl estradiol (MONONESSA) 0.25-35 MG-MCG tablet Take 1 Tab by mouth once daily(Patient not taking: Reported on 08/16/2015) 1 Packet 11 No current facility-administered medications for this visit. Allergies: No Known Allergies PE: BP 107/66 mmHg Pulse 79 Wt 61.236 kg (135 lb) General alert, cooperative, no distress Skin Skin color, texture, turgor normal. No rashes or lesions Head NCAT w/o lesions or tenderness Eyes/Ears sclera and conjunctiva clear bilateral TM's and external ear canals normal Nose/ Throat nose:normal, throat: no erythema or exudates noted. Teeth and gums normal Neck supple, non-tender, with full ROM, and no lymphadenopathy, no goiter Heart regular rate and rhythm, S1, S2 normal, no murmur, click, rub or gallop Lungs clear to auscultation bilaterally Abdomen soft, non-tender, non distended, normal BS Impression / Plan: 1. Excessive menstruation in puberty- labs to check hgb. Send to peds bariatric surgeon. 2. Fatigue- labs for anemia, bleeding concern, EBV. Follow up with results by phone. 3. Vaso vagal- discussed hydration and salt. documented in this encounter Plan of Treatment Not on file documented as of this encounter Goals Goal Patient Goal Type Associated Problems Recent Progress Patient-Stated? Author Use safety retraint in car Lifestyle On track( 020 10:10 AM CDT) No Gaye Westbrook RN documented as of this encounter Procedures Procedure Name Priority Date/Time Associated Diagnosis Comments COAGULATION STUDIES INTERPRETATION Routine 08/16/2015 4:25 PM CDT Excessive menstruation at puberty LUKE-GARCÍA VIRUS ANTIBODY TO VCA IGG Routine 08/16/2015 4:25 PM CDT Other fatigue LUKE-GARCÍA VIRUS AB TO NUCLEAR AG IGG Routine 08/16/2015 4:25 PM CDT Other fatigue LUKE-GARCÍA VIRUS AB TO EARLY AG IGG Routine 08/16/2015 4:25 PM CDT Other fatigue VON WILLEBRAND EVALUATION PANEL Routine 08/16/2015 4:25 PM CDT Excessive menstruation at puberty LUKE-GARCÍA VIRUS ANTIBODY TO VCA IGM Routine 08/16/2015 4:23 PM CDT Other fatigue PT PTT PANEL Routine 08/16/2015 4:23 PM CDT Excessive menstruation at puberty IRON + TIBC + FERRITIN Routine 6 4:21 PM CDT Excessive menstruation at puberty VITAMIN D 25-HYDROXY Routine 08/16/2015 4:21 PM CDT Other fatigue RETIC COUNT Routine 08/16/2015 4:21 PM CDT Excessive menstruation at puberty CBC W AUTO DIFFERENTIAL Routine 08/16/2015 4:21 PM CDT Excessive menstruation at puberty COMPREHENSIVE METABOLIC PANEL Routine 08/16/2015 4:21 PM CDT Other fatigue TSH Routine 08/16/2015 4:21 PM CDT Other fatigue T4 FREE Routine 08/16/2015 4:21 PM CDT Other fatigue HEMOGLOBIN - POINT OF CARE (AMB) OK Routine 08/16/2015 Excessive menstruation at puberty documented in this encounter Results * COAGULATION STUDIES INTERPRETATION (PO REF) (08/16/2015 4:25 PM CDT) Interpretation Note [facility] INSURANCE BILL Comment: COAGULATION: VON WILLEBRAND FACTOR ASSESSMENT CURRENT RESULTS ASSESSMENT The VWF:Ag is normal. The VWF:RCo is normal. The FVIII is elevated. VON WILLEBRAND FACTOR ASSESSMENT CURRENT RESULTS INTERPRETATION - These results are not consistent with a diagnosis of VWD according to the current NHLBI guideline. Persistently elevated FVIII activity is a risk factor for venous thrombosis as well as recurrence of venous thrombosis. Risk is graded and increases with the degree of elevation. Although elevated FVIII activity has been identified to cluster within families, a genetic basis for the elevation has not yet been elucidated (Br J Haematol. 2012; 157(6):653-663). VON WILLEBRAND FACTOR ASSESSMENT - Results may be falsely elevated and possibly falsely normal as VWF and FVIII may increase in , in samples drawn from patients (particularly children) who are visibly stressed at the time of phlebotomy, as acute phase reactants, or in response to certain drug therapies such as desmopressin. Repeat testing may be necessary before excluding a diagnosis of VWD especially if the clinical suspicion is high for an underlying bleeding disorder. The setting for phlebotomy should be as calm as possible and patients should be encouraged to sit quietly prior to the blood draw. VON WILLEBRAND FACTOR ASSESSMENT DEFINITIONS - VWD - von Willebrand disease; VWF - von Villebrand factor; VWF:Ag - VWF antigen; VWF:RCo - VWF ristocetin cofactor activity; FVIII - factor VIII activity. - INSPECTOR SCALES: For questions regarding panel interpretation, please contact Miladys Villegas M.D. ([place]) or Robert Hinds M.D. at [employer] at . DISCLAIMER These assessments and interpretations are provided as a convenience in support of the physician-patient relationship and are not intended to replace the physician's clinical judgment. They are derived from national guidelines in addition to other evidence and expert opinion. The clinician should consider this information within the context of clinical opinion and the individual patient. SEE GUIDANCE FOR VON WILLEBRAND FACTOR ASSESSMENT: (1) The National Heart, Lung and Blood [place]. The Diagnosis, Evaluation and Management of von Willebrand Disease. [place], [place]: National Institutes of Health Publication 08-5832. 2007. Available at http://www.nhlbi.nih.gov/guidelines/vwd/. (2) Frank FUENTES et al. Am J Hematol. 2009; 84(6):366-370. (3) Desmond M et al. Haemophilia. 2004;10(3):199-217. (4) Gemma GUAJARDO et al. Haemophilia. 2004; 10(3):218-231. PDF Image . [facility] INSURANCE BILL 08/16/2015 4:25 PM CDT 08/16/2015 6:17 PM CDT Narrative Resulting Agency Comment [employer] ??[facility] [phone] Eddi Eric DO LAB - COAGULATI ON ORDERABLES [facility] INSURANCE BILL [address] [place] [address] * (ABNORMAL) VON WILLEBRAND EVALUATION PANEL (08/16/2015 4:25 PM CDT) Factor VIII Activity 151(H) 50 - 150 % [facility] INSURANCE BILL Comment: Factor VIII activity (FVIII), can increase transiently as an acute phase reactant protein in response to stress or exertion. ??FVIII is also elevated with the use of oral contraceptives and during normal . ??Persistently elevated FVIII activity may have a genetic basis and is a risk factor for venous thrombosis as well as recurrence of venous thrombosis. ??Risk is graded and increases with the degree of elevation. ??Consideration should be given to repeat analysis to determine if this abnormality is persistent. von Willebrand Factor Antigen 142 50 - 150 % [facility] INSURANCE BILL von Willebrand Factor Activity 125 50 - 150 % [facility] INSURANCE BILL Blood specimen (specimen) BLOOD SPECIMEN / Unknown 08/16/2015 4:25 PM CDT 08/16/2015 6:17 PM CDT Narrative Resulting Agency Comment [facility] [address] ??[facility] [phone] Eddi Eric DO LAB - COAGULATI ON ORDERABLES [facility] INSURANCE BILL [address] [place] [address] * LUKE-GARCÍA VIRUS ANTIBODY TO NUCLEAR ANTIGEN (08/16/2015 4:25 PM CDT) Luke-García Virus Antibody IgG Nuclear Antigen <18.0 0.0 - 17.9 U/mL [facility] INSURANCE BILL Comment: ?Negative ?<18.0 ?Equivocal 18.0 - 21.9 ?Positive ?>21.9 Blood specimen (specimen) BLOOD SPECIMEN / Unknown 08/16/2015 4:25 PM CDT 08/16/2015 6:17 PM CDT Narrative Resulting Agency Comment [facility] [place] [address] ??[place] [phone] Eddi Eric DO LAB - CHEMISTRY ORDERABLES Performing Organization Address [facility] de Phone Number [facility] INSURANCE BILL [address] [place] [address] * LUKE-GARCÍA VIRUS ANTIBODY TO EARLY ANTIGEN (08/16/2015 4:25 PM CDT) Luke-García Virus Early Antigen Antibody IgG <9.0 0.0 - 8.9 U/mL [facility] INSURANCE BILL Comment: ?Negative ?< 9.0 ?Equivocal ??9.0 - 10.9 ?Positive ?>10.9 Blood specimen (specimen) BLOOD SPECIMEN / Unknown 08/16/2015 4:25 PM CDT 08/16/2015 6:17 PM CDT Narrative Resulting Agency Comment [facility] [place] [address] ??[place] [phone] Eddi Eric DO LAB - CHEMISTRY ORDERABLES Performing Organization Address [facility]/ZIP Co de Phone Number [facility] INSURANCE BILL [address] [place] [address] * LUKE-GARCÍA VIRUS ANTIBODY TO VCA IGG (08/16/2015 4:25 PM CDT) Luke-García Viral Capsid Antigen Antibody IgG <18.0 0.0 - 17.9 U/mL [facility] INSURANCE BILL Comment: ?Negative ?<18.0 ?Equivocal 18.0 - 21.9 ?Positive ?>21.9 Blood specimen (specimen) BLOOD SPECIMEN / Unknown 08/16/2015 4:25 PM CDT 08/16/2015 6:17 PM CDT Narrative Resulting Agency Comment [facility] [address] ??[facility] [phone] Eddi Eric DO LAB - CHEMISTRY ORDERABLES Performing Organization Address [facility] de Phone Number [facility] INSURANCE BILL [address] [place] [address] * LUKE-GARCÍA VIRUS ANTIBODY TO VCA IGM (08/16/2015 4:23 PM CDT) Luke-García Viral Capsid Antigen Antibody IgM <36.0 0.0 - 35.9 U/mL [facility] INSURANCE BILL Comment: ?Negative ?<36.0 ?Equivocal 36.0 - 43.9 ?Positive ?>43.9 Blood specimen (specimen) BLOOD SPECIMEN / Unknown 08/16/2015 4:23 PM CDT 08/16/2015 6:17 PM CDT Narrative Resulting Agency Comment [facility] [address] ??[facility] [phone] Eddi Eric DO LAB - SEROLOGY ORDERABLES [facility] INSURANCE BILL [address] [place] [address] * PT PTT PANEL (08/16/2015 4:23 PM CDT) INR 1.0 0.8 - 1.2 [facility] INSURANCE BILL Comment: ? Reference interval is for non-anticoagulated patients. ?. ? Suggested INR therapeutic range for Vitamin K ? antagonist therapy: ?Standard Dose (moderate intensity ? therapeutic range): ? 2.0 - 3.0 ?Higher intensity therapeutic range ? 2.5 - 3.5 PT 9.9 9.7 - 12.3 sec [facility] INSURANCE BILL PTT 29 26 - 35 sec [facility] INSURANCE BILL Comment: This test has not been validated for monitoring unfractionated heparin therapy. aPTT-based therapeutic ranges for unfractionated heparin therapy have not been established. For general guidelines on Heparin monitoring, refer to the [facility] Directory of Services. Blood specimen (specimen) BLOOD SPECIMEN / Unknown 08/16/2015 4:23 PM CDT 08/16/2015 6:17 PM CDT Narrative Resulting Agency Comment [address] ??[facility] [phone] Eddi Eric DO LAB - COAGULATI ON ORDERABLES Performing Organization Address [facility] Co de Phone Number [facility] INSURANCE BILL [address] [place] [address] * RETIC COUNT (08/16/2015 4:21 PM CDT) Reticulocyte Count 0.9 0.6 - 2.6 % [facility] INSURANCE BILL Blood specimen (specimen) BLOOD SPECIMEN / Unknown 08/16/2015 4:21 PM CDT 08/16/2015 6:17 PM CDT Narrative Resulting Agency Comment [address] ??[facility] [phone] Eddi Eric DO LAB - HEMATOLOG Y ORDERABLES [facility] INSURANCE BILL [address] [place] [address] * (ABNORMAL) CBC W AUTO DIFFERENTIAL (08/16/2015 4:21 PM CDT) WBC 8.3 3.4 - 10.8 x10E3/uL [facility] INSURANCE BILL RBC 4.47 3.77 - 5.28 x10E6/uL [facility] INSURANCE BILL Hemoglobin 11.8 11.1 - 15.9 g/dL [facility] INSURANCE BILL Hematocrit 35.6 34.0 - 46.6 % [facility] INSURANCE BILL MCV 80 79 - 97 fL [facility] INSURANCE BILL MCH 26.4(L) 26.6 - 33.0 pg [facility] INSURANCE BILL MCHC 33.1 31.5 - 35.7 g/dL [facility] INSURANCE BILL RDW 16.7(H) 12.3 - 15.4 % [facility] INSURANCE BILL Platelet Count 195 150 - 379 x10E3/uL [facility] INSURANCE BILL Granulocytes % 59 % [facility] INSURANCE BILL Lymphocytes % 29 % [facility] INSURANCE BILL Monocytes % 8 % [facility] INSURANCE BILL Eosinophils % 4 % [facility] INSURANCE BILL Basophils % 0 % [facility] INSURANCE BILL Immature Cells NOT NEEDED [facility] INSURANCE BILL Comment:Ancillary determined the test is not needed Granulocytes Absolute 5.0 1.4 - 7.0 x10E3/uL [facility] INSURANCE BILL Lymphocytes Absolute 2.4 0.7 - 3.1 x10E3/uL [facility] INSURANCE BILL Monocytes Absolute 0.7 0.1 - 0.9 x10E3/uL [facility] INSURANCE BILL Eosinophils Absolute 0.3 0.0 - 0.4 x10E3/uL [facility] INSURANCE BILL Basophils Absolute 0.0 0.0 - 0.3 x10E3/uL [facility] INSURANCE BILL Immature Granulocytes 0 % [facility] INSURANCE BILL Immature Granulocytes Absolute 0.0 0.0 - 0.1 x10E3/uL [facility] INSURANCE BILL nRBC NOT NEEDED [facility] INSURANCE BILL Comment:Ancillary determined the test is not needed Comment Hematology NOT NEEDED [facility] INSURANCE BILL Comment:Ancillary determined the test is not needed Blood specimen (specimen) BLOOD SPECIMEN / Unknown 08/16/2015 4:21 PM CDT 08/16/2015 6:17 PM CDT Narrative Resulting Agency Comment [facility] [place] [address] [facility] [address] [facility] ??[facility] [phone] Eddi Eric DO LAB - HEMATOLOG Y ORDERABLES [facility] INSURANCE BILL [address] [place] [address] * (ABNORMAL) IRON + TIBC + FERRITIN (PO REF LAB) (08/16/2015 4:21 PM CDT) TIBC 464(H) 250 - 450 ug/dL [facility] INSURANCE BILL UIBC 415 131 - 425 ug/dL [facility] INSURANCE BILL Iron 49 26 - 169 ug/dL [facility] INSURANCE BILL Iron Saturation 11(L) 15 - 55 % [facility] INSURANCE BILL Ferritin 8(L) 15 - 77 ng/mL [facility] INSURANCE BILL BLOOD SPECIMEN / Unknown 08/16/2015 4:21 PM CDT 08/16/2015 6:17 PM CDT Narrative Resulting Agency Comment [facility] [address] ??[facility] [phone] Eddi Eric DO LAB - CHEMISTRY ORDERABLES [facility] INSURANCE BILL [address] [place] [address] * VITAMIN D 25-HYDROXY (08/16/2015 4:21 PM CDT) Vitamin D, 25 Hydroxy 44.7 30.0 - 100.0 ng/mL [facility] INSURANCE BILL Comment: Vitamin D deficiency has been defined by the [place] of Medicine and an Endocrine Society practice guideline as a level of serum 25-OH vitamin D less than 20 ng/mL (1,2). The Endocrine Society went on to further define vitamin D insufficiency as a level between 21 and 29 ng/mL (2). 1. IOM ([place] of Medicine). 2010. Dietary reference ?? intakes for calcium and D. [place]: The ?? National Academies Press. 2. Moises MF, Ulysses NC, Kiya MARTÍNEZ, et al. ?? Evaluation, treatment, and prevention of vitamin D ?? deficiency: an Endocrine Society clinical practice ?? guideline. JCEM. 2010; 96(7):1911-30. Blood specimen (specimen) BLOOD SPECIMEN / Unknown 08/16/2015 4:21 PM CDT 08/16/2015 6:17 PM CDT Narrative Resulting Agency Comment [facility] [address] ??[facility] [phone] Eddi Amador-Vornberg DO LAB - CHEMISTRY ORDERABLES [facility] INSURANCE BILL [address] [place] [address] * COMPREHENSIVE METABOLIC PANEL (08/16/2015 4:21 PM CDT) Glucose 94 65 - 99 mg/dL [facility] INSURANCE BILL BUN 13 5 - 18 mg/dL [facility] INSURANCE BILL Creatinine 0.82 0.49 - 0.90 mg/dL [facility] INSURANCE BILL BUN/Creatinine Ratio 16 9 - 25 [facility] INSURANCE BILL Sodium 140 134 - 144 mmol/L [facility] INSURANCE BILL Potassium 4.5 3.5 - 5.2 mmol/L [facility] INSURANCE BILL Chloride 102 97 - 108 mmol/L [facility] INSURANCE BILL CO2 21 18 - 29 mmol/L [facility] INSURANCE BILL Calcium 9.2 8.9 - 10.4 mg/dL [facility] INSURANCE BILL Protein Total 6.9 6.0 - 8.5 g/dL [facility] INSURANCE BILL Albumin 4.3 3.5 - 5.5 g/dL [facility] INSURANCE BILL Globulin Total 2.6 1.5 - 4.5 g/dL [facility] INSURANCE BILL Albumin/Globulin Ratio 1.7 1.1 - 2.5 [facility] INSURANCE BILL Bilirubin Total 0.7 0.0 - 1.2 mg/dL [facility] INSURANCE BILL Alkaline Phosphatase 111 68 - 209 IU/L [facility] INSURANCE BILL AST 14 0 - 40 IU/L [facility] INSURANCE BILL ALT 10 0 - 24 IU/L [facility] INSURANCE BILL Blood specimen (specimen) BLOOD SPECIMEN / Unknown 08/16/2015 4:21 PM CDT 08/16/2015 6:17 PM CDT Narrative Resulting Agency Comment [facility] [place] [phone] [facility] ??[facility] [phone] Eddi Eric DO LAB - CHEMISTRY ORDERABLES [facility] INSURANCE BILL [address] [place] [address] * T4 FREE (08/16/2015 4:21 PM CDT) T4 Free 1.10 0.93 - 1.60 ng/dL [facility] INSURANCE BILL Blood specimen (specimen) BLOOD SPECIMEN / Unknown 08/16/2015 4:21 PM CDT 08/16/2015 6:17 PM CDT Narrative Resulting Agency Comment [facility] [address] [facility] ??[facility] [phone] Eddi Eric DO LAB - CHEMISTRY ORDERABLES [facility] INSURANCE BILL [address] [place] [address] * TSH (08/16/2015 4:21 PM CDT) TSH 1.420 0.450 - 4.500 uIU/mL [facility] INSURANCE BILL Blood specimen (specimen) BLOOD SPECIMEN / Unknown 08/16/2015 4:21 PM CDT 08/16/2015 6:17 PM CDT Narrative Resulting Agency Comment [place] [id number] [facility] ??[facility] [phone] Eddi Eric DO LAB - CHEMISTRY ORDERABLES Performing Organization Address [facility]/ZIP Co de Phone Number [facility] INSURANCE BILL [address] [place] [address] * HEMOGLOBIN - POINT OF CARE (AMB) OK (08/16/2015) Hemoglobin POCT 12.9 12.6 - 14.2 gm/dL QC Verified Yes Yes Blood specimen (specimen) BLOOD SPECIMEN / Unknown 08/16/2015 Eddi Eric DO LAB - POINT OF CARE ORDERABLES documented in this encounter Visit Diagnoses Diagnosis Other fatigue- Primary Excessive menstruation at puberty Puberty bleeding Vaso vagal episode Syncope and collapse documented in this encounter Care Teams Assembler Tractor Relationship Specialty Start Date End Date Ivis Montana MD PCP - Pediatrics 02/23/09 11/10/19 Antonieta Moon MD PCP - General Pediatrics 01/05/11 09/17/23 documented as of this encounter
--- OUTSIDE RECORDS SUMMARY | 2024-02-08 00:40 | XMS_ITS | Patient Health Summary ---
Author Organization [facility] [employer] Address [address] [place] [place] [address] Care Team Providers Care Seasonal Tax Preparer Name Role Phone Gloria Mancera MD Primary Care Provider Note from [facility],non-owned Affiliates and Associated Physician Practices is amultiple site organization consisting of ambulatory clinics and hospital sitesin [place], [place], [place] and [place]. This disclosure is being madepursuant to the Care Everywhere program and may not contain all information available regarding this patient. Last updated 17.[facility] [employer] Allergies No known active allergies Medications Be aware that medications may not be up to date on this document. Always verify current medications with the patient. No known medications Active Problems No known active problems Immunizations * INFLUENZA VACCINE, TRIV. (AFLURIA, FLUZONE TRIVALENT; 6MO+) (IIV3)(Given 10/31/2010) * DTaP VACCINE IM (6wk-6yrs)(Given 05/14/2007, 05/01/2003, 05/01/2002, 03/03/2002, 2001) * HEP A PED and ADULT, HISTORIC VACCINE(Given 10/13/2005) * HEP A PEDS 2 DOSE(Given 05/14/2007, 10/13/2005) * HEP B VACCINE, PED/ADOL(Given 07/31/2002, 2001, 2001) * HIB BOOSTER(Given 05/01/2003, 05/01/2002, 03/03/2002, 2001) * Hib,HISTORIC VACCINE(Given 05/01/2003, 05/01/2002, 03/03/2002, 2001) * Human Papilloma Virus Quadrivalent Vaccine(Given 09/29/2014, 12/27/2010, 10/31/2010) * INFLUENZA(Given 12/07/2004, 11/04/2004) * INFLUENZA VACCINE, CELL CULTURE, QUADR. (FLUCELVAX QUADRIVALENT; 6MO+) (CCIIV4)(Given 01/03/2023) * INFLUENZA VACCINE, QUADR. (FLUZONE; FLULAVAL; FLUARIX; AFLURIA QUADRIVALENT; 6MO+), 0.5 ML (IIV4)(Given 11/11/2019) * MENINGOCOCCAL CONJUGATE (MCV4P)(Given 11/11/2019, 08/04/2013) * MMR(Given 05/14/2007, 10/30/2002) * PNEUMOCOCCAL CONJ, PEDS(Given 10/30/2002, 05/01/2002, 03/03/2002, 2001) * PNEUMOCOCCAL PCV7 CONJ, PEDS(Given 10/30/2002, 05/01/2002, 03/03/2002, 2001) * POLIO IPV(Given 05/14/2007, 02/03/2003, 03/03/2002, 2001) * PPD(Given 10/30/2002) * TDAP (7yrs+)(Given 08/04/2013) * VARICELLA(Given 05/14/2007, 02/03/2003) Social History Tobacco Use Types Packs/Day Years [...] on file Sexual Orientation Not on file Last Filed Vital Signs Vital Sign Reading [...] Mass Index 23.74 09/18/2023 9:20 AM CDT Procedures * LAB RESULTS ORDER(Performed 01/24/2024) * HEMOGLOBIN - POINT OF CARE (AMB) OK(Performed 11/11/2019) Performed for Routine general medical examination at a health care facility, History of anemia * LIPID PROFILE+GLUCOSE - POINT OF CARE (AMB)(Performed 11/11/2019) Performed for Routine general medical examination at a health care facility * IMAGING/RADIOLOGY/XRAY RESULTS ORDER(Performed 01/24/2018) * XR KNEE RIGHT 4VW OR MORE(Performed 03/31/2016) Performed for Right knee pain, unspecified chronicity * CULTURE RESPIRATORY UPPER(Performed 02/24/2016) * STREP A SCREEN - POINT OF CARE (AMB)(Performed 02/24/2016) Performed for Acute pharyngitis, unspecified etiology * RISTOCETIN COFACTOR (VWF)(Performed 10/16/2015) * PTT(Performed 10/16/2015) * HEMOGLOBIN(Performed 10/16/2015) * PT PTT PANEL(Performed 10/13/2015) * RISTOCETIN COFACTOR (VWF)(Performed 10/13/2015) * VON WILLEBRAND ANTIGEN(Performed 10/13/2015) * HEMOGLOBIN(Performed 10/13/2015) * COAGULATION STUDIES INTERPRETATION(Performed 08/16/2015) Performed for Excessive menstruation at puberty * VON WILLEBRAND EVALUATION PANEL(Performed 08/16/2015) Performed for Excessive menstruation at puberty * LUKE-GARCÍA VIRUS AB TO NUCLEAR AG IGG(Performed 08/16/2015) Performed for Other fatigue * LUKE-GARCÍA VIRUS AB TO EARLY AG IGG(Performed 08/16/2015) Performed for Other fatigue * LUKE-GARCÍA VIRUS ANTIBODY TO VCA IGG(Performed 08/16/2015) Performed for Other fatigue * LUKE-GARCÍA VIRUS ANTIBODY TO VCA IGM(Performed 08/16/2015) Performed for Other fatigue * PT PTT PANEL(Performed 08/16/2015) Performed for Excessive menstruation at puberty * RETIC COUNT(Performed 08/16/2015) Performed for Excessive menstruation at puberty * CBC W AUTO DIFFERENTIAL(Performed 08/16/2015) Performed for Excessive menstruation at puberty * IRON + TIBC + FERRITIN(Performed 08/16/2015) Performed for Excessive menstruation at puberty * VITAMIN D 25-HYDROXY(Performed 08/16/2015) Performed for Other fatigue * COMPREHENSIVE METABOLIC PANEL(Performed 08/16/2015) Performed for Other fatigue * T4 FREE(Performed 08/16/2015) Performed for Other fatigue * TSH(Performed 08/16/2015) Performed for Other fatigue * HEMOGLOBIN - POINT OF CARE (AMB) OK(Performed 08/16/2015) Performed for Excessive menstruation at puberty * STREP A SCREEN - POINT OF CARE (AMB)(Performed 07/20/2011) Performed for Acute pharyngitis * CULTURE STREP GROUP A(Performed 07/20/2011) Performed for Acute pharyngitis * STREP A SCREEN - POINT OF CARE (AMB)(Performed 03/22/2011) Performed for Streptococcal sore throat * CULTURE THROAT(Performed 11/22/2010) * CULTURE RESPIRATORY(Performed 11/22/2010) Performed for Acute pharyngitis * STREP A SCREEN - POINT OF CARE (AMB)(Performed 11/22/2010) Performed for Acute pharyngitis * GROSS + MICRO EXAM(Performed 05/03/2005) Results * LAB RESULTS ORDER (01/24/2024) 01/24/2024 Narrative 01/24/2024 Ordered by an unspecified provider. Scanned Document LAB - THERAPEUTIC DR PRETTY MONITORING ORDERABLES * HEMOGLOBIN - POINT OF CARE (AMB) OK (11/11/2019 10:35 AM CDT) Only the most recent of2 resultswithin the time period is included. Hemoglobin POCT 13.5 11.6 - 16.2 gm/dL Comment:hct 40% QC Verified Yes Yes Blood BLOOD SPECIMEN / Unknown 11/11/2019 10:35 AM CDT Antonieta Moon MD LAB - POINT OF CARE ORDERABLES * (ABNORMAL) LIPID PROFILE+GLUCOSE - POINT OF CARE (AMB) (11/11/2019 10:31 AM CDT) QC Verified Yes Yes Cholesterol POCT 152 240 mg/dL HDL POCT 78(A) 60 mg/dL Triglycerides POCT <45 130 mg/dL LDL N/A 160 mg/dL Non HDL Cholesterol POCT 74 130 mg/dL Total Cholesterol/HDL Ratio POCT 2.0 6.0 Glucose 95 70 - 126 mg/dL Blood BLOOD SPECIMEN / Unknown 11/11/2019 10:31 AM CDT Antonieta Moon MD LAB - POINT OF CARE ORDERABLES * IMAGING/RADIOLOGY/XRAY RESULTS ORDER (01/24/2018) Anatomical Region Laterality Modality Other Scanned Document IMAGING * XR KNEE 4+ VW RIGHT (03/31/2016 2:41 PM ROLLER MAN) Anatomical Region Laterality Modality Lower Extremity Radiographic Aarti ging 03/31/2016 5:00 PM ROLLER MAN Impressions 03/31/2016 5:00 PM ROLLER MAN Normal. Narrative 03/31/2016 5:00 PM ROLLER MAN Right knee 4 views History: Pain The bones, soft tissues, and joint spaces are normal. Procedure Note Gaye Sykes MD - 03/31/2016 Right knee 4 views History: Pain The bones, soft tissues, and joint spaces are normal. IMPRESSION Normal. Jayce Chadwick MD DIAGNOSTIC IMAGING O RDERABLES * CULTURE RESPIRATORY UPPER (02/24/2016 4:41 PM ROLLER MAN) Upper Respiratory Culture Final report [facility] ACCOUNT BILL Result 1 [facility] ACCOUNT BILL Comment:Routine respiratory kourtney 02/24/2016 4:41 PM ROLLER MAN 02/24/2016 Narrative Resulting Agency Comment [facility] [place] [address] ??[facility] [phone] Antonieta Moon MD LAB - MICROBIOLOGY O RDERABLES [facility] ACCOUNT [place]ILL [place] [address] * STREP A SCREEN - POINT OF CARE (AMB) (02/24/2016 4:15 PM ROLLER MAN) Only the most recent of4 resultswithin the time period is included. Strep A Rapid POCT Negative Negative Strep A Internal Control Present Other ENTIRE THROAT (SURFACE REGION OF NECK) / Unknown 02/24/2016 4:15 PM ROLLER MAN Antonieta Moon MD LAB - POINT OF CARE ORDERABLES * FACTOR VIII RISTOCETIN COFACTOR (10/16/2015) Only the most recent of2 resultswithin the time period is included. Blood BLOOD SPECIMEN / Unknown Mirian Vences MD LAB - COAGULATION OR DERABLES * PTT (10/16/2015) Blood BLOOD SPECIMEN / Unknown Mirian Vences MD LAB - COAGULATION OR DERABLES * HEMOGLOBIN (10/16/2015) Only the most recent of2 resultswithin the time period is included. Blood BLOOD SPECIMEN / Unknown Mirian Vences MD LAB - HEMATOLOGY ORD ERABLES * VON WILLEBRAND ANTIGEN (10/13/2015 3:08 PM CDT) von Willebrand Factor Antigen 126 50 - 217 % [facility]) Comment: Test Performed at: [employer] [place] [address] [place], [place] ??[phone] STEPHAN CUEVAS MD,PHD Blood specimen (specimen) BLOOD SPECIMEN / Unknown 10/13/2015 3:08 PM CDT 10/13/2015 3:09 PM CDT Mirian Vences MD LAB - COAGULATION OR DERABLES [facility]) * PT PTT PANEL (10/13/2015 3:08 PM CDT) Only the most recent of2 resultswithin the time period is included. Pathologist [facility] APTT 28 22 - 34 sec [facility]) Comment: This test has not been validated for monitoring unfractionated heparin therapy. For testing that is validated for this type of therapy, please refer to the Heparin Anti-Xa assay (test code 14739). For additional information, please refer to http://education.[employer]/faq/EOK863 (This link is being provided for informational/educational purposes only.) INR 1.1 [facility]) Comment: Reference Range ? 0.9-1.1 Moderate-intensity Warfarin Therapy 2.0-3.0 Higher-intensity Warfarin Therapy ?? 3.0-4.0 PT 11.1 9.0 - 11.5 sec [facility]) Comment: REPORT COMMENT: FASTING:NO Test Performed at: [employer] [place] [address] [place], [place] ??[address] KARISSA BENITEZ DO,MPH 10/13/2015 3:08 PM CDT 10/13/2015 3:09 PM CDT Mirian Vences MD LAB - COAGULATION OR DERABLES Performing Organization Address [facility] de Phone Number [facility] ([facility]) * COAGULATION STUDIES INTERPRETATION (PO REF) (08/16/2015 4:25 PM CDT) [facility] [address] Interpretation Note [facility] INSURANCE BILL Comment: [...] activity; FVIII - factor VIII activity. - NEONATAL SOCIAL WORKER: For questions regarding panel interpretation, please contact Miladys Villegas M.D. ([place]) or Robert Hinds M.D. at [facility] at . DISCLAIMER These assessments and interpretations [...] (1) The National Heart, Lung and Blood [place]. The Diagnosis, Evaluation and Management of von Willebrand Disease. Carmi, MD: National Institutes of Health Publication 08-5832. 2007. Available at http://www.nhlbi.nih.gov/guidelines/vwd/. (2) Frank FUENTES et al. Am J Hematol. 2009; 84(6):366-370. (3) Desmond M et al. Haemophilia. 2004;10(3):199-217. (4) Gemma GUAJARDO et al. Haemophilia. 2004; 10(3):218-231. PDF Image . [facility] INSURANCE BILL 08/16/2015 4:25 PM CDT 08/16/2015 6:17 PM CDT Narrative Resulting Agency Comment [facility] [phone] Eddi Eric DO LAB - COAGULATI ON ORDERABLES Performing Organization Address City/[facility] Co de Phone Number [facility] INSURANCE BILL [address] [place] [address] * LUKE-GARCÍA VIRUS ANTIBODY TO VCA IGG (08/16/2015 4:25 PM CDT) Luke-García Viral Capsid Antigen Antibody IgG <18.0 0.0 - 17.9 U/mL [facility] INSURANCE BILL Comment: ?Negative ?<18.0 ?Equivocal 18.0 - 21.9 ?Positive ?>21.9 Blood specimen (specimen) BLOOD SPECIMEN / Unknown 08/16/2015 4:25 PM CDT 08/16/2015 6:17 PM CDT Narrative Resulting Agency Comment [facility] [address] ??[place] [phone] Eddi Eric DO LAB - CHEMISTRY ORDERABLES Performing Organization Address City/[facility]/ZIP Co de Phone Number [facility] INSURANCE BILL [address] [place] [address] * LUKE-GARCÍA VIRUS ANTIBODY TO NUCLEAR ANTIGEN (08/16/2015 4:25 PM CDT) Luke-García Virus Antibody IgG Nuclear Antigen <18.0 0.0 - 17.9 U/mL [facility] INSURANCE BILL Comment: ?Negative ?<18.0 ?Equivocal 18.0 - 21.9 ?Positive ?>21.9 Blood specimen (specimen) BLOOD SPECIMEN / Unknown 08/16/2015 4:25 PM CDT 08/16/2015 6:17 PM CDT Narrative Resulting Agency Comment [facility] [address] ??[facility] [phone] Eddi Eric DO LAB - CHEMISTRY ORDERABLES [facility] INSURANCE BILL [address] [place] [address] * LUKE-GARCÍA VIRUS ANTIBODY TO EARLY ANTIGEN (08/16/2015 4:25 PM CDT) Luke-García Virus Early Antigen Antibody IgG <9.0 0.0 - 8.9 U/mL [facility] INSURANCE BILL Comment: ?Negative ?< 9.0 ?Equivocal ??9.0 - 10.9 ?Positive ?>10.9 Blood specimen (specimen) BLOOD SPECIMEN / Unknown 08/16/2015 4:25 PM CDT 08/16/2015 6:17 PM CDT Narrative Resulting Agency Comment [facility] [place] [address] ??[facility] [phone] Eddi Eric DO LAB - CHEMISTRY ORDERABLES Performing Organization Address [facility] de Phone Number [facility] INSURANCE BILL [address] [place] [address] * (ABNORMAL) VON WILLEBRAND EVALUATION PANEL (08/16/2015 4:25 PM CDT) Factor VIII Activity 151(H) 50 - 150 % [facility] INSURANCE BILL Comment: Factor VIII activity (FVIII), [...] Factor Antigen 142 50 - 150 % [facility] INSURANCE BILL von Willebrand Factor Activity 125 50 - 150 % [facility] INSURANCE BILL Blood specimen (specimen) BLOOD SPECIMEN / Unknown 08/16/2015 4:25 PM CDT 08/16/2015 6:17 PM CDT Narrative Resulting Agency Comment [facility] [address] ??[facility] [phone] Eddi Eric DO LAB - COAGULATI ON ORDERABLES Performing Organization Address [facility] de Phone Number [facility] INSURANCE BILL [address] [place] [address] * LUKE-GARCÍA VIRUS ANTIBODY TO VCA IGM (08/16/2015 4:23 PM CDT) Luke-García Viral Capsid Antigen Antibody IgM <36.0 0.0 - 35.9 U/mL [facility] INSURANCE BILL Comment: ?Negative ?<36.0 ?Equivocal 36.0 - 43.9 ?Positive ?>43.9 Blood specimen (specimen) BLOOD SPECIMEN / Unknown 08/16/2015 4:23 PM CDT 08/16/2015 6:17 PM CDT Narrative Resulting Agency Comment [facility] [address] ??[facility] [phone] Eddi Eric DO LAB - SEROLOGY ORDERABLES [facility] INSURANCE BILL [address] [place] [address] * (ABNORMAL) IRON + TIBC + FERRITIN [...] 6:17 PM CDT Narrative Resulting Agency [facility] [address] ??[facility] [phone] Eddi Eric DO LAB - CHEMISTRY ORDERABLES [facility] INSURANCE BILL [address] [place] [address] * VITAMIN D 25-HYDROXY (08/16/2015 4:21 PM CDT) Vitamin D, 25 Hydroxy 44.7 30.0 - 100.0 ng/mL [facility] INSURANCE BILL Comment: Vitamin D deficiency has been defined by the [place] of Medicine and an Endocrine Society practice guideline as a level of serum 25-OH vitamin D less than 20 ng/mL (1,2). The Endocrine Society went on to further define vitamin D insufficiency as a level between 21 and 29 ng/mL (2). 1. IOM ([place] of Medicine). 2010. Dietary reference ?? intakes for calcium and D. [place]: The ?? National Cisiv Press. 2. Moises MF, Ulysses NC, Kiya MARTÍNEZ, et al. ?? Evaluation, treatment, and prevention of vitamin D ?? deficiency: an Endocrine Society clinical practice ?? guideline. JCEM. 2010; 96(7):1911-30. Blood specimen (specimen) BLOOD SPECIMEN / Unknown 08/16/2015 4:21 PM CDT 08/16/2015 6:17 PM CDT Narrative Resulting Agency Comment [facility] [address] ??[facility] [phone] Eddi Eric DO LAB - CHEMISTRY ORDERABLES [facility] INSURANCE BILL [address] [place] [phone] * RETIC COUNT (08/16/2015 4:21 PM CDT) Reticulocyte Count 0.9 0.6 - 2.6 % [facility] INSURANCE BILL Blood specimen (specimen) BLOOD SPECIMEN / Unknown 08/16/2015 4:21 PM CDT 08/16/2015 6:17 PM CDT Narrative Resulting Agency Comment [facility] [place] [address] ??[facility] [phone] Eddi Eric DO LAB - HEMATOLOG Y ORDERABLES [facility] INSURANCE BILL [address] [place] [address] * (ABNORMAL) CBC W AUTO DIFFERENTIAL (08/16/2015 [...] PM CDT Narrative Resulting Agency Comment [facility] [place] [address] ??[facility] [phone] Eddi Eric DO LAB - HEMATOLOG Y ORDERABLES [facility] INSURANCE BILL [address] [place] [address] * COMPREHENSIVE METABOLIC PANEL (08/16/2015 4:21 PM [...] 6:17 PM CDT Narrative Resulting Agency Comment [facility] [address] ??[facility] [phone] Eddi Eric DO LAB - CHEMISTRY ORDERABLES Performing Organization Address [facility]/ZIP Co de Phone Number [facility] INSURANCE BILL [address] [place] [address] * TSH (08/16/2015 4:21 PM CDT) TSH 1.420 0.450 - 4.500 uIU/mL [facility] INSURANCE BILL Blood specimen (specimen) BLOOD SPECIMEN / Unknown 08/16/2015 4:21 PM CDT 08/16/2015 6:17 PM CDT Narrative Resulting Agency Comment [facility] [address] ??[facility] [phone] Eddi Eric DO LAB - CHEMISTRY ORDERABLES Performing Organization Address [facility] Co de Phone Number [facility] INSURANCE BILL [address] [place] [address] * T4 FREE (08/16/2015 4:21 PM CDT) Pathologist [facility] T4 Free 1.10 0.93 - 1.60 ng/dL [facility] INSURANCE BILL Blood specimen (specimen) BLOOD SPECIMEN / Unknown 08/16/2015 4:21 PM CDT 08/16/2015 6:17 PM CDT Narrative Resulting Agency Comment [facility] [address] ??[facility] [phone] Eddi Eric DO LAB - CHEMISTRY ORDERABLES Performing Organization Address [facility] Co de Phone Number [facility] INSURANCE BILL [address] [place] [address] * CULTURE STREP GROUP A (07/20/2011 10:09 AM CDT) Culture Strep A [facility] Comment: ??STREPTOCOCCUS, GROUP A CULTURE ?MICRO NUMBER: ?[id number] ??TEST STATUS: ? FINAL ??SPECIMEN SOURCE: ?? THROAT ??SPECIMEN QUALITY: ??ADEQUATE ??RESULT: ?No beta hemolytic Streptococci isolated Test Performed at: [employer] [facility] [address] [place], [place] ??[phone] KARISSA BENITEZ DO Miscellaneous samples (specimen) ENTIRE THROAT (SURFACE REGION OF NECK) / Unknown 07/20/2011 10:09 AM CDT 07/20/2011 9:42 PM CDT Ivis [place] MD LAB - MICROBIOLOGY [facility] [place] [address] [place] [address] * (ABNORMAL) CULTURE THROAT (11/22/2010 11:14 AM CDT) Culture (A) [facility] Comment: ??CULTURE, THROAT ?MICRO NUMBER: ?[id number] ??TEST STATUS: ? FINAL ??SPECIMEN SOURCE: ?? THROAT ??SPECIMEN QUALITY: ??ADEQUATE ??RESULT: ?Light growth of Group A Streptococcus ? Beta-hemolytic Streptococci are ? predictably susceptible to penicillin ? and other beta-lactams. ? Susceptibility testing not routinely ? performed. ??COMMENT: ? Normal oropharyngeal kourtney also present. Test Performed at: [facility] [employer] [facility] [address] [place], [place] ??[phone] KARISSA BENITEZ DO 11/22/2010 11:1 4 AM CDT 11/23/2010 1:20 AM CDT Ivis [place] MD LAB - MICROBIOLOGY O MARCELL Performing Organization Address [facility] de Phone Number [facility] [address] [place] [address] * CULTURE RESPIRATORY (11/22/2010 11:14 AM CDT) Culture [facility] Comment: ??CULTURE, SPUTUM/LOWER RESPIRATORY ?MICRO NUMBER: ?[id number] ??TEST STATUS: ? FINAL ??SPECIMEN SOURCE: ?? THROAT ??SPECIMEN QUALITY: ??ADEQUATE ??GRAM STAIN: ?Few epithelial cells ? No white blood cells seen ? Mixed bacterial kourtney ? Gram stain indicates that specimen is ? physician representative of lower respiratory tract ??RESULT: ?Test cancelled per client request. Test Performed at: [employer] [facility] [address] [place] [address] ??[phone] KARISSA BENITEZ DO ENTIRE THROAT (SURFACE REGION OF NECK) / Unknown 11/22/2010 11:14 AM CDT 11/23/2010 1:20 AM CDT Ivis [place] MD LAB - MICROBIOLOGY O [place] Performing Organization Address [facility] de Phone Number [facility] [address] [place] [address] * GROSS + MICRO EXAM (05/03/2005 10:42 AM ROLLER MAN) Result CASE NUMBER [id number] [facility] LAB PATH REPORT Comment: ORDERING PHYSICIAN ??MATTHEW ROGERS SPECIMEN TYPE ?Thyroglossal Duct-Cyst and Hyoid CLINICAL HISTORY ? The patient is a 4-year-old girl with a preoperative diagnosis of thyroglossal duct cyst who underwent excision of the same. GROSS DESCRIPTION ? The specimen is received fresh in a container labeled with the patient's name and thyroglossal cyst and hyoid for gross and microscopic examination. ??The specimen consists of a hyoid bone with attached soft spherical glistening pink cyst measuring 3.0 x 1.8 x 0.8 cm. ??Some of the attached tissues have cautery artifact. ??The cyst itself measures 1.2 x 0.9 x 0.8 cm. ??The cyst is from the hyoid bone, and the area of separation is inked black. ??The cyst is serially sectioned to reveal gelatinous, angel material within its lumen. ??The cyst wall is submitted entirely into cassette A1 . ??The point of separation is sectioned and submitted into cassette A2 . ??The remainder of the hyoid bone is submitted for decalcification in cassette A3 . ??(JG/lw) MICROSCOPIC DESCRIPTION ? 2 H/E, 1 decal H/E Sections show fibroadipose connective tissue, skeletal muscle, cartilage, and bone. Within the soft tissue is a cyst lined by cuboidal/low columnar epithelium. The cyst lumen contains fibrin, mucinous material, occasional leukocytes, and occasional macrophages. Adjacent to the cyst, there is mild mononuclear inflammation with numerous histiocytes, some of which contain hemosiderin. A rare thyroid follicle is present. The cartilage is unremarkable. Unremarkable lamellar bone trabeculae define a small sample of medullary space showing trilineage hematopoietic differentiation. (DSB/dm) DIAGNOSIS ? DIAGNOSIS ??SOFT TISSUE (NECK) AND HYOID BONE, EXCISION ? - THYROGLOSSAL DUCT CYST. This case has been personally reviewed and interpreted by the attending (teaching) pathologist. Chief Jailer ? Mel Sheridan RESIDENT IN PATHOLOG Lebron Stevens M.D. PATHOLOGIST ?Bernard Lino M.D. ELECTRONICALLY CELSA BERNARD LINO MISCELLANEOUS SAMPLES / Unknown 05/03/2005 10:42 AM ROLLER MAN 05/03/2005 12:08 PM ROLLER MAN Historical Provider MD LAB - PATHOLOGY/C YTOLOGY ORDERABLES [facility] LAB PATH REPORT Care Teams Seasonal Tax Preparer Relationship Specialty Start Date End Date Gloria Mancera MD [address] [place] [address] PCP - General Internal Medicine 09/18/23
--- OUTSIDE RECORDS SUMMARY | 2024-02-08 00:40 | XMS_ITS | Encounter Summary ---
Author Organization [facility] Health Address [address] [place] [address] Care Team Providers Care Accounting Manager Assistant Controller Name Role Phone Ivis Montana MD Unavailable Antonieta Moon MD Primary Care Provider [phone] Encounter Details Date Type Department Care Team (Late st Contact Info) Description 04/01/2018 Orders Only [facility] [address] [place] [address] Document, Scanned Social History Tobacco Use Types Packs/Day Years Used Date Smoking Tobacco: Never Assessed Sex and Gender Information Value Date Recorded Sex Assigned at Not on file Gender Identity Not on file Sexual Orientation Not on file documented as of this encounter Plan of Treatment Not on file documented as of this encounter Goals Goal Patient Goal Type Associated Problems Recent Progress Patient-Stated? Author Use safety retraint in car Lifestyle On track( 020 10:10 AM CDT) No Gaye Westbrook RN documented as of this encounter Procedures Procedure Name Priority Date/Time Associated Diagnosis Comments IMAGING/RADIOLOGY/XRAY RESUL TS ORDER Routine 01/24/2018 documented in this encounter Results * IMAGING/RADIOLOGY/XRAY RESULTS ORDER (01/24/2018) Anatomical Region Laterality Modality Other Scanned Document IMAGING documented in this encounter Visit Diagnoses Not on filedocumented in this encounter Care Teams Accounting Manager Assistant Controller Relationship Specialty Start Date End Date Ivis Montana MD PCP - Pediatrics 02/23/09 11/10/19 Antonieta Moon MD PCP - General Pediatrics 01/05/11 09/17/23 documented as of this encounter
--- OUTSIDE RECORDS SUMMARY | 2024-02-08 00:40 | XMS_ITS | Encounter Summary ---
Author Organization [facility] Address [address] [facility] [place] [address] Care Team Providers Care Manager Activities Name Role Phone Ivis Montana MD Unavailable Antonieta Moon MD Primary Care Provider [phone] Reason for Visit * Reason Comments Menstrual Problem Encounter Details Date Type Department Care Team (Late st Contact Info) Description 05/11/2015 4:15 PM CDT Office Visit [facility] - Pediatrics [address] [place] [phone] Antonieta Moon MD [address] [place] [phone] General counseling for prescription of oral contraceptives (Primary Dx) Social History Tobacco Use Types Packs/Day Years Used Date Smoking Tobacco: Never Assessed Sex and Gender Information Value Date Recorded Sex Assigned at Not on file Gender Identity Not on file Sexual Orientation Not on file documented as of this encounter Last Filed Vital Signs Vital Sign Reading Time Taken Comments Blood Pressure 116/70 05/11/2015 4:22 PM CDT Pulse 68 05/11/2015 4:22 PM CDT Temperature - - Respiratory Rate - - Oxygen Saturation - - Inhaled Oxygen Concentration - - Weight 59.9 kg (132 lb) 05/11/2015 4:22 PM CDT Height 175.9 cm (5' 9.25 ) 05/11/2015 4:22 PM CD T Body Mass Index 19.35 05/11/2015 4:22 PM CDT Body Mass Index Percentile 54.15% 05/11/2015 4:2 2 PM CDT Growth Chart: [facility] (Girls, 2- 20 Years) documented in this encounter Progress Notes * Antonieta Moon MD - 05/11/2015 4:28 PM CDT Lillie Ohara is a 14 y.o. year old female here to discuss heavy, difficult periods. She had menarche at 14ys --started in Oct. Had no period until February and since then has been monthly. Her menses lasts 7-14 days since February. Her heaviest flow lasts 2-4 days, and she has cramping for almost the entire menses. Her menses hasbeen so heavy that she has stained her clothes on more than one occasion, and mom had to bring clothes to school. Nausea? No Lightheaded or dizziness? No School missed due to menses? yes LMP? currently Sexually active? no Smoker? no Fhx: Hx of bleeding disorders or clots? no Females with difficult/prolonged periods? Yes --mom. Mom also with hx of ovarian cysts Mom's cousins with difficult, heavy periods PE: Vitals: 05/11/15 1622 BP: 116/70 Pulse: 68 Weight: 59.875 kg (132 lb) Gen-well appearing Resp: CTA CV: nL w/o M Abd: soft, nontender, no masses Impression: 1. Start contraception to control menses Plan: rx:mononessa. Discussed how to start a new pack, missed doses Call if any concerns or questions. * Gaye Ying RN - 05/11/2015 4:24 PM CDT Lillie Ohara is a 14 y.o. female accompanied to office today by Mom for evaluation of heavy periodsand severe cramping over the last 3 months. Pt says that periods first started 10/20. Irregular until 02/20. Now periods very heavy with severe cramping. Pt says that she may soak through pad hourly. Currently on day #8 of flow. documented in this encounter Plan of Treatment Not on file documented as of this encounter Goals Goal Patient Goal Type Associated Problems Recent Progress Patient-Stated? Author Use safety retraint in car Lifestyle On track( 020 10:10 AM CDT) No Gaye Westbrook RN documented as of this encounter Visit Diagnoses Diagnosis General counseling for prescription of oral contraceptives- Primary documented in this encounter Care Teams Manager Activities Relationship Specialty Start Date End Date Ivis Montana MD PCP - Pediatrics 02/23/09 11/10/19 Antonieta Moon MD PCP - General Pediatrics 01/05/11 09/17/23 documented as of this encounter
--- OUTSIDE RECORDS SUMMARY | 2024-02-08 00:40 | XMS_ITS | Encounter Summary ---
Author Organization [facility] Address [address] [place] [place] [address] Care Team Providers Care Servomechanism Assembler Name Role Phone Ivis Montana MD Unavailable Antonieta Moon MD Primary Care Provider [phone] Encounter Details Date Type Department Care Team (Late st Contact Info) Description 03/31/2016 2:34 PM [facility] - 03/31/2016 11:59 PM [facility] Encounter [facility] - Radiology [address] [place] [address] Jayce Chadwick MD [address] [facility] [place] [address] Discharge Disposition: Home or Self Care Social History Tobacco Use Types Packs/Day Years Used Date Smoking Tobacco: Never Assessed Sex and Gender Information Value Date Recorded Sex Assigned at Not on file Gender Identity Not on file Sexual Orientation Not on file documented as of this encounter Medications at Time of Discharge [...] 05/11/2015 11/11/2019 documented as of this encounter Plan of Treatment Not on file documented as of this encounter Goals Goal Patient Goal Type Associated Problems Recent Progress Patient-Stated? Author Use safety retraint in car Lifestyle On track( 020 10:10 AM CDT) No Gaye Westbrook RN documented as of this encounter Procedures Procedure Name Priority Date/Time Associated Diagnosis Comments XR KNEE RIGHT 4VW OR MORE Routine 03/31/2016 2:41 PM [facility] Right knee pain, unspecified chronicity documented in this encounter Results * XR KNEE 4+ VW RIGHT (03/31/2016 2:41 PM [facility]) Anatomical Region Laterality Modality Lower Extremity Radiographic Aarti ging 03/31/2016 5:00 PM [facility] Impressions 03/31/2016 5:00 PM [facility] Normal. Narrative 03/31/2016 5:00 PM [facility] Right knee 4 views History: Pain The bones, soft tissues, and joint spaces are normal. Procedure Note Gaey Sykes MD - 03/31/2016 Right knee 4 views History: Pain The bones, soft tissues, and joint spaces are normal. IMPRESSION Normal. Jayce Chadwick MD DIAGNOSTIC IMAGING O RDERABLES documented in this encounter Visit Diagnoses Diagnosis Right knee pain, unspecified chronicity documented in this encounter Care Teams Servomechanism Assembler Relationship Specialty Start Date End Date Ivis Montana MD PCP - Pediatrics 02/23/09 11/10/19 Antonieta Moon MD PCP - General Pediatrics 01/05/11 09/17/23 documented as of this encounter
--- OUTSIDE RECORDS SUMMARY | 2024-02-08 00:40 | XMS_ITS | Encounter Summary ---
Author Organization [facility] Address [address] [facility] [place] [address] Care Team Providers Care Body And Frame Technician Name Role Phone Ivis Montana MD Unavailable Antonieta Moon MD Primary Care Provider [phone] Reason for Visit * Reason Onset Date Comments Question 03/30/2016 Encounter Details Date Type Department Care Team (Late st Contact Info) Description 03/30/2016 Telephone [facility] Medical [facility] - Pediatrics [address] [place] [address] [place] [phone] Antonieta Moon MD [address] [place] [phone] Question Social History Tobacco Use Types Packs/Day Years Used Date Smoking Tobacco: Never Assessed Sex and Gender Information Value Date Recorded Sex Assigned at Not on file Gender Identity Not on file Sexual Orientation Not on file documented as of this encounter Miscellaneous Notes * Telephone Encounter - Lluvia Zapata RN - 03/30/2016 4:57 PM CST Made appt for tomorrow AM RONMENTAL COMPLIANCE INSPECTOR * Telephone Encounter - Heather Dinh - 03/30/2016 4:40 PM CST Patient's mom(Lurdes)called. Stating that Lillie hurt her right knee. Mom is icing it now. Mom wanting to know if she needs to see a orthopedic. Wanting to know if she needs x-ray's. Please call mom with recommendations. RONMENTAL COMPLIANCE INSPECTOR documented in this encounter Plan of Treatment Not on file documented as of this encounter Goals Goal Patient Goal Type Associated Problems Recent Progress Patient-Stated? Author Use safety retraint in car Lifestyle On track( 020 10:10 AM CDT) No Gaye Westbrook RN documented as of this encounter Visit Diagnoses Not on filedocumented in this encounter Care Teams Body And Frame Technician Relationship Specialty Start Date End Date Ivis Montana MD PCP - Pediatrics 02/23/09 11/10/19 Antonieta Moon MD PCP - General Pediatrics 01/05/11 09/17/23 documented as of this encounter
--- OUTSIDE RECORDS SUMMARY | 2024-02-08 00:40 | XMS_ITS | Encounter Summary ---
Author Organization [facility] Address [address] [place] [address] Care Team Providers Care Canvas Worker Name Role Phone Gloria Mancera MD Primary Care Provider Encounter Details Date Type Department Care Team (Latest Contact Info) Description 09/18/2023 Travel Social History Tobacco Use Types Packs/Day Years Used Date Smoking Tobacco: Never Smokeless Tobacco: Never Alcohol Use Standard Drinks/Week Comments Yes 0 [...] on filedocumented in this encounter Care Teams Canvas Worker Relationship Specialty Start Date End Date Gloria Mancera MD [address] [place] [address] PCP - General Internal Medicine 09/18/23 documented as of this encounter
--- OUTSIDE RECORDS SUMMARY | 2024-02-08 00:40 | XMS_ITS | Encounter Summary ---
Author Organization [facility] Address [address] [place] [address] Care Team Providers Care Radiation Therapist Name Role Phone Ivis Montana MD Unavailable Antonieta Moon MD Primary Care Provider [phone] Encounter Details Date Type Department Care Team (Late st Contact Info) Description 02/24/2016 Orders Only [facility] - Pediatrics [address] [place] [phone] Antonieta Moon MD [address] [place] [phone] Social History Tobacco Use Types Packs/Day Years Used Date Smoking Tobacco: Never Assessed Sex and Gender Information Value Date Recorded Sex Assigned at Not on file Gender Identity Not on file Sexual Orientation Not on file documented as of this encounter Progress Notes * Tata Saab RN - 02/28/2016 9:18 AM CST Mom aware throat cx negative for strep. Pt is feeling better. ENGER BARGE MASTER * Antonieta Moon MD - 02/28/2016 8:57 AM CST Throat cx is negative ENGER BARGE MASTER documented in this encounter Plan of Treatment Not on file documented as of this encounter Goals Goal Patient Goal Type Associated Problems Recent Progress Patient-Stated? Author Use safety retraint in car Lifestyle On track( 020 10:10 AM CDT) No Gaye Westbrook RN documented as of this encounter Procedures Procedure Name Priority Date/Time Associated Diagnosis Comments CULTURE RESPIRATORY UPPER 02/24/2016 4:41 PM PASSENGER BARGE MASTER documented in this encounter Results * CULTURE RESPIRATORY UPPER (02/24/2016 4:41 PM PASSENGER BARGE MASTER) Upper Respiratory Culture Final report [facility] ACCOUNT BILL Result 1 [facility] ACCOUNT BILL Comment:Routine respiratory kourtney 02/24/2016 4:41 PM PASSENGER BARGE MASTER 02/24/2016 Narrative Resulting Agency Comment [facility] [address] [facility] [id number] Antonieta Moon MD LAB - MICROBIOLOGY O RDERABLES [facility] ACCOUNT BILL [address] [place] [address] documented in this encounter Visit Diagnoses Not on filedocumented in this encounter Care Teams Radiation Therapist Relationship Specialty Start Date End Date Ivis Montana MD PCP - Pediatrics 02/23/09 11/10/19 Antonieta Moon MD PCP - General Pediatrics 01/05/11 09/17/23 documented as of this encounter
--- OUTSIDE RECORDS SUMMARY | 2024-02-08 00:40 | XMS_ITS | Encounter Summary ---
Author Organization [facility] Address [address] [place] [address] Care Team Providers Care Apprentice Plumber Name Role Phone Antonieta Moon MD Primary Care Provider [phone] Reason for Visit * Reason Comments Complete Physical Exam 19 year well che k Encounter Details Date Type Department Care Team (Late st Contact Info) Description 11/11/2019 10:00 AM CDT Office Visit [facility] - Pediatrics [address] [place] [phone] Antonieta Moon MD [address] [place] [phone] Routine general medical examination at a health care facility (Primary Dx); Well adolescent visit without abnormal findings; Need for vaccination; History of anemia Social History Tobacco Use Types Packs/Day Years [...] PM CDT documented as of this encounter Last Filed Vital Signs Vital Sign Reading Time Taken Comments Blood Pressure 98/64 11/11/2019 10:10 AM CDT Pulse - - Temperature 36.5 ??C (97.7 ??F) 11/11/2019 1 0:10 AM CDT Respiratory Rate - - Oxygen Saturation - - Inhaled Oxygen Concentration - - Weight 71.4 kg (157 lb 6.4 oz) 11/11/19 20 10:10 AM CDT Height 179.7 cm (5' 10.75 ) 11/11/2019 10:10 AM CDT Body Mass Index 22.11 11/11/2019 10:10 AM CDT Body Mass Index Percentile 59.89% 11/10 10:10 AM CDT Growth Chart: CDC (Girls, 2- 20 Years) documented in this encounter Patient Instructions * Patient Instructions* Tata Saab RN - 11/11/2019 10:36 AM CDT Wt Readings from Last 3 Encounters: 11/11/19 71.4 kg (157 lb 6.4 oz) (89 %, Z= 1.20)* 03/31/16 63 kg (139 lb) (85 %, Z= 1.05)* 10/13/15 62.6 kg (138 lb) (87 %, Z= 1.12)* * Growth percentiles are based on CDC (Girls, 2-20 Years) data. Ht Readings from Last 3 Encounters: 11/11/19 1.797 m (5' 10.75 ) (>99 %, Z= 2.57)* 10/13/15 1.765 m (5' 9.5 ) (>99 %, Z= 2.46)* 10/01/15 1.759 m (5' 9.25 ) (>99 %, Z= 2.37)* * Growth percentiles are based on CDC (Girls, 2-20 Years) data. Body mass index is 22.11 kg/m??. 60 %ile (Z= 0.25) based on CDC (Girls, 2-20 Years) BMI-for-age based on BMI available as of 11/11/2019. 89 %ile (Z= 1.20) based on CDC (Girls, 2-20 Years) lqpktv-[id number] data using vitals from 11/11/2019. >99 %ile (Z= 2.57) based on CDC (Girls, 2-20 Years) Mxwajmw-pyc-[id number] data based on Stature recorded on 11/11/2019. Immunization History Administered Date(s) Administered ??? DTaP 2001, 03/03/2002, 05/01/2002, 05/01/2003, 05/14/2007 ??? FLU VACCINE QUAD IIV4 SPLIT PF IM 11/11/2019 ??? FLU VACCINE TRI IIV3 SPLIT IM (AFLURIA) 10/31/2010 ??? HEP A PEDS 2 DOSE 10/13/2005, 05/14/2007 ??? HEP B VACCINE, PED/ADOL 2001, 2001, 07/31/2002 ??? HIB BOOSTER 2001, 03/03/2002, 05/01/2002, 05/01/2003 ??? Human Papilloma Virus Quadrivalent Vaccine 10/31/2010, 12/27/2010, 09/29/2014 ??? INFLUENZA 12/07/2004 ??? MENINGOCOCCAL CONJUGATE (MCV4) 08/04/2013, 11/11/2019 ??? MMR 10/30/2002, 05/14/2007 ??? PNEUMOCOCCAL CONJ, PEDS 2001, 03/03/2002, 05/01/2002, 10/30/2002 ??? POLIO IPV 2001, 03/03/2002, 02/03/2003, 05/14/2007 ??? PPD 10/30/2002 ??? TDAP 08/04/2013 ??? VARICELLA 02/03/2003, 05/14/2007 Office Visit on 11/11/19 LIPID PROFILE+GLUCOSE - POINT OF CARE (AMB) Result Value Ref Range QC Verified Yes Yes Cholesterol POCT 152 240 mg/dL HDL POCT 78 (Abnormal) 60 mg/dL Triglycerides POCT <45 130 mg/dL LDL N/A 160 mg/dL Non HDL Cholesterol POCT 74 130 mg/dL Total Cholesterol/HDL Ratio POCT 2.0 6.0 Glucose 95 70 - 126 mg/dL HEMOGLOBIN - POINT OF CARE (AMB) OK Result Value Ref Range Hemoglobin POCT 13.5 11.6 - 16.2 gm/dL QC Verified Yes Yes documented in this encounter Progress Notes * Antonieta Moon MD - 11/11/2019 10:18 AM CDT Adolescent WCC Reviewed Nurse's Adolescent Note PHX: anemia Medications: (has a new OCP, but hasn't 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 Stopped eating so much fast food and junk food. Exercising more. Stomachaches, Headaches: No Constipation/Diarrhea: No Sleep: 8+ hours Girls: Menses Yes: regular. Lasts 4-5 days Social History: School: [employer], Grade 12. [employer] learning. Doing well in school: Yes Home:lives with parents Activity/Exercise:Dance With exercise, CP, SOB, dizziness? No Alcohol:denies Drugs:denies Sex:not currently, in the past. Used condoms. Broke up with BF of 2 years Smoking/Vaping:no Tmdcdvhkro-SCN-5 score : negative -see screening section Physical Exam: Wt Readings from Last 3 Encounters: 11/11/19 71.4 kg (157 lb 6.4 oz) (89 %, Z= 1.20)* 03/31/16 63 kg (139 lb) (85 %, Z= 1.05)* 10/13/15 62.6 kg (138 lb) (87 %, Z= 1.12)* * Growth percentiles are based on CDC (Girls, 2-20 Years) data. Ht Readings from Last 3 Encounters: 11/11/19 1.797 m (5' 10.75 ) (>99 %, Z= 2.57)* 10/13/15 1.765 m (5' 9.5 ) (>99 %, Z= 2.46)* 10/01/15 1.759 m (5' 9.25 ) (>99 %, Z= 2.37)* * Growth percentiles are based on CDC (Girls, 2-20 Years) data. 89 %ile (Z= 1.20) based on CDC (Girls, 2-20 Years) kzvfjz-haq-lyk data using vitals from 11/11/2019. >99 %ile (Z= 2.57) based on CDC (Girls, 2-20 Years) Reovidq-jps-ngi data based on Stature recorded on 11/11/2019. BP 98/64 Temp 97.7 ??F (36.5 ??C) (Temporal Artery) Ht 1.797 m (5' 10.75 ) Wt 71.4 kg (157 lb 6.4 oz) BMI 22.11 kg/m2 Blood pressure percentiles are not available for patients who are 18 years or older. GENERAL: Alert, NAD EYES: PERRLA, EOMI, red reflex bilaterally EARS: TM's wnl NOSE: nasal passages clear NECK: supple, no masses, no lymphadenopathy RESP: clear to auscultation bilaterally CV: RRR, normal S1/S2, no murmurs, clicks, or rubs. ABD: soft, nontender, no masses, no hepatosplenomegaly, normal bowel sounds : normal female exam, Ruben V EXTREMITIES: Full range of motion of all extremities SPINE: Straight SKIN: no rashes or lesions Impression: 1. Well adolescent 2. Hx of anemia in the past -check Hgb level Plan: Anticipatory guidance discussed included nutrition, safety, dentist, exercise. Vaccines: Meningococcal, Influenza BMI> 25 or 85%ile: No Classification of weight: healthy Blood pressure percentiles are not available for patients who are 18 years or older. Office Visit on 11/11/19 LIPID PROFILE+GLUCOSE - POINT OF CARE (AMB) Result Value Ref Range QC Verified Yes Yes Cholesterol POCT 152 240 mg/dL HDL POCT 78 (Abnormal) 60 mg/dL Triglycerides POCT <45 130 mg/dL LDL N/A 160 mg/dL Non HDL Cholesterol POCT 74 130 mg/dL Total Cholesterol/HDL Ratio POCT 2.0 6.0 Glucose 95 70 - 126 mg/dL HEMOGLOBIN - POINT OF CARE (AMB) OK Result Value Ref Range Hemoglobin POCT 13.5 11.6 - 16.2 gm/dL QC Verified Yes Yes Follow up in 1 year. * Tata Saab RN - 11/11/2019 10:10 AM CDT Nurse Adolescent Screen Parental/Patient Concerns: none Diet: Milk 2%, 8 ounces per day. Vegetables: fair, fruits: fair, Dental: regular dental visits? Yes documented in this encounter Plan of Treatment Not on file documented as of this encounter Goals Goal Patient Goal Type Associated Problems Recent Progress Patient-Stated? Author Use safety retraint in car Lifestyle On track( 020 10:10 AM CDT) No Gaye Westbrook RN documented as of this encounter Procedures Procedure Name Priority Date/Time Associated Diagnosis Comments HEMOGLOBIN - POINT OF CARE (AMB) OK Routine 11/11/2019 10:35 AM CDT Routine general medical examination at a health care facility History of anemia LIPID PROFILE+GLUCOSE - POINT OF CARE (AMB) Routine 11/11/2019 10:31 AM CDT Routine general medical examination at a health care facility documented in this encounter Results * HEMOGLOBIN - POINT OF CARE (AMB) OK (11/11/2019 10:35 AM CDT) Hemoglobin POCT 13.5 11.6 - 16.2 gm/dL [...] documented in this encounter Visit Diagnoses Diagnosis Routine general medical examination at a health care facility- Primary Well adolescent visit without abnormal findings Need for vaccination Need for prophylactic vaccination and inoculation against unspecified single disease History of anemia Personal history of diseases of blood and blood-forming organs documented in this encounter Care Teams Apprentice Plumber Relationship Specialty Start Date End Date Antonieta Moon MD PCP - General Pediatrics 01/05/11 09/17/23 documented as of this encounter
--- OUTSIDE RECORDS SUMMARY | 2024-02-08 00:40 | XMS_ITS | Encounter Summary ---
Author Organization [facility] Address [address] [facility] [place] [address] Care Team Providers Care Psychodramatist Name Role Phone Ivis Montana MD Unavailable Antonieta Moon MD Primary Care Provider [phone] Reason for Visit * Reason Comments Sore Throat started today Encounter Details Date Type Department Care Team (Late st Contact Info) Description 07/20/2011 9:45 AM CDT Office Visit [facility] Medical [facility] - Pediatrics [address] [place] [phone] Ivis Montana MD [address] [place] [phone] Acute pharyngitis (Primary Dx) Social History Tobacco Use Types Packs/Day Years Used Date Smoking Tobacco: Never Assessed Sex and Gender Information Value Date Recorded Sex Assigned at Not on file Gender Identity Not on file Sexual Orientation Not on file documented as of this encounter Last Filed Vital Signs Vital Sign Reading Time Taken Comments Blood Pressure - - Pulse - - Temperature 36.6 ??C (97.9 ??F) 07/20/2011 9:37 AM CD T Respiratory Rate - - Oxygen Saturation - - Inhaled Oxygen Concentration - - Weight 41.3 kg (91 lb) 07/20/2011 9:37 AM CDT Height - - Body Mass Index - - documented in this encounter Patient Instructions * Patient Instructions* Ivis Montana MD - 07/20/2011 10:06 AM CDT Lillie Ohara most likely has viral sore throat, she tested negative for strep test here in the office, we have send off a throat culture which will be back in 2 days. We will call you with the results. In the mean while, please give her lozenges, and have her do salt and water gargles for pain relief. Use tyelenol per dose chart for pain and fever as needed every four hours. Many prescription and over the counter medicines contain Tylenol (acetaminophen) and Advil( ibuprofen) Do not use/give more than one Tylenol or Advil containing product at a time. documented in this encounter Progress Notes * Gaye Ying RN - 07/24/2011 9:35 AM CDTQuick Note: Attempted to reach parent by calling step father's cell phone. No answer. Message left reporting result and to call office for further questions or concerns. * Gaye Ying RN - 07/24/2011 9:33 AM CDTQuick Note: Attempted to reach parent on home number. Number has been disconnected. * Ivis Montana MD - 07/24/2011 9:17 AM CDTQuick Note: Please call the parent and let him/her know the results are normal. * Ivis Montana MD - 07/20/2011 9:38 AM CDT SUBJECTIVE: Lillie Ohara is a 10 y.o.brought by mother who complains of sore throat that began when woke up thismorning. Mom reports that pt has a history of getting strep throat regularly. Fever: No Headache:No Stomach ache:No URI symptoms: Yes; sneezing, coughing, yawning, congestion OBJECTIVE: Temp(Src) 97.9 ??F (Temporal Artery) Wt 91 lb (41.277 kg) General appearance: alert, well appearing, and in no distress. Ears: bilateral TM's and external ear canals normal Nose: normal and patent, no erythema, discharge or polyps Oropharynx: mucous membranes moist, pharynx normal without lesions Neck: supple, no significant adenopathy Lungs: clear to auscultation, no wheezes, rales or rhonchi, symmetric air entry Heart - regular rate and rhythm, normal S1 and S2, no murmurs ASSESSMENT: Pharyngitis possible Strep throat PLAN: See orders for this visit as documented in the electronic medical record Strep culture sent Symptomatic treatment discussed. documented in this encounter Plan of Treatment Not on file documented as of this encounter Procedures Procedure Name Priority Date/Time Associated Diagnosis Comments STREP A SCREEN - POINT OF CARE (AMB) Routine 07/20/2011 10:13 AM CDT Acute pharyngitis CULTURE STREP GROUP A Routine 07/20/2011 10:09 AM CDT Acute pharyngitis documented in this encounter Results * STREP A SCREEN - POINT OF CARE (AMB) (07/20/2011 10:13 AM CDT) Strep A Rapid POCT Negative Negative Strep A Internal Control NEGATIVE - POSITIVE Throat swab (specimen) ENTIRE THROAT (SURFACE REGION OF NECK) / Unknown Ivis Montana MD LAB - POINT OF CARE ORDERABLES * CULTURE STREP GROUP A (07/20/2011 10:09 AM CDT) Culture Strep A QUEST Comment: ??STREPTOCOCCUS, GROUP A CULTURE ?MICRO NUMBER: ?[id number] ??TEST STATUS: ? FINAL ??SPECIMEN SOURCE: ?? THROAT ??SPECIMEN QUALITY: ??ADEQUATE ??RESULT: ?No beta hemolytic Streptococci isolated Test Performed at: [facility] [address] [place] [address] ??[id number] KARISSA BENITEZ DO Miscellaneous samples (specimen) ENTIRE THROAT (SURFACE REGION OF NECK) / Unknown 07/20/2011 10:09 AM CDT 07/20/2011 9:42 PM CDT Ivis Montana MD LAB - MICROBIOLOGY O RDERABLES Performing Organization Address City/State/[facility] Co de Phone Number [facility] [address] [place] [address] documented in this encounter Visit Diagnoses Diagnosis Acute pharyngitis- Primary documented in this encounter Care Teams Psychodramatist Relationship Specialty Start Date End Date Ivis Montana MD PCP - Pediatrics 02/23/09 11/10/19 Antonieta Moon MD PCP - General Pediatrics 01/05/11 09/17/23 documented as of this encounter
--- OUTSIDE RECORDS SUMMARY | 2024-02-08 00:40 | XMS_ITS | Referral Summary ---
Author Organization [facility] Address [address] [place] [address] Care Team Providers Care Dry Starch Operator Name Role Phone Gloria Mancera MD Primary Care Provider Source Comments [facility],non-owned Affiliates and Associated Physician Practices is amultiple site organization consisting of ambulatory clinics and hospital sitesin [place], [place], [place] and [place]. This disclosure is being madepursuant to the Care Everywhere program and may not contain all information available regarding this patient. Last updated [employer] [facility] Allergies No known active allergies Medications Be aware that medications may not be up to date on this document. Always verify current medications with the patient. No known medications Active Problems No known active problems Immunizations Name Administration Dates Next Due INFLUENZA VACCINE, TRIV. (AF LURIA, FLUZONE TRIVALENT; 6MO+) (IIV3) 10/31/2010 DTaP VACCINE IM (6wk-6yrs) 05/14/2007,,05/01/2002,03/03,2001 HEP A PED and ADULT, HISTORIC VACCINE 10/13/2005 HEP A PEDS 2 DOSE 05/14/2007,10/13/2005 HEP B VACCINE, PED/ADOL 07/31/2002,2001, HIB BOOSTER 05/01/2003, 3,03/03/2002,12/30 Hib,HISTORIC VACCINE 05/01/2003,05/02/19 03,03/03/2002,12/30 Human Papilloma Virus Miquel valent Vaccine 09/29/2014,12/27/2010,10/31/2010 INFLUENZA 12/07/2004,11/04/2004 INFLUENZA VACCINE, CELL CULT URE, QUADR. (FLUCELVAX QUADRIVALENT; 6MO+) (CCIIV4) 01/03/2023 INFLUENZA VACCINE, QUADR. (F LUZONE; FLULAVAL; FLUARIX; AFLURIA QUADRIVALENT; 6MO+), 0.5 ML (IIV4) 11/11/2019 MENINGOCOCCAL CONJUGATE (MCV4P) 11/11/2019,08/04 MMR 05/14/2007,10/30/2002 PNEUMOCOCCAL CONJ, PEDS 10/30/2002,05/01,03/03/2002,12/30 PNEUMOCOCCAL PCV7 CONJ, PEDS 10/30/2002, 05/01/2002,03/03/2002,12/30 POLIO IPV 05/14/2007, 3,03/03/2002,12/30 PPD 10/30/2002 TDAP (7yrs+) 08/04/2013 VARICELLA 05/14/2007,02/03/2003 Social History Tobacco Use Types Packs/Day Years [...] Mass Index 23.74 09/18/2023 9:20 AM CDT Plan of Treatment Not on file Goals Goal Patient Goal Type Associated Problems Recent Progress Patient-Stated? Author Use safety retraint in car Lifestyle On track( 020 10:10 AM CDT) No Gaye Westbrook RN Procedures Procedure Name Priority Date/Time Associated Diagnosis Comments LAB RESULTS ORDER 01/24/2024 from Last 3 Months Results * LAB RESULTS ORDER (01/24/2024) 01/24/2024 Narrative 01/24/2024 Ordered by an unspecified provider. Scanned Document LAB - THERAPEUTIC DR OLSEN MONITORING ORDERABLES from Last 3 Months Care Teams Dry Starch Operator Relationship Specialty Start Date End Date Gloria Mancera MD [address] [place] [address] PCP - General Internal Medicine 09/18/23
--- OUTSIDE RECORDS SUMMARY | 2024-02-08 00:40 | XMS_ITS | Encounter Summary ---
Author Organization [facility] Address [address] [facility] [place] [address] Care Team Providers Care Ornamental Iron Worker Name Role Phone Ivis Montana MD Unavailable Antoineta Moon MD Primary Care Provider [phone] Reason for Visit * Reason Comments Swelling Knee right knee pain and swelliing. started yesterday. Colp a pop in knee. Knee swollen. Painful to bend knee. Encounter Details Date Type Department Care Team (Late st Contact Info) Description 03/31/2016 10:00 AM INCOME TAX PREPARER Office Visit [facility] Medical [facility] - Pediatrics [address] [place] [phone] Eddi Eric DO [address] [place] [phone] Pain in joint, pelvic region and thigh, right (Primary Dx) Social History Tobacco Use Types Packs/Day Years Used Date Smoking Tobacco: Never Assessed Sex and Gender Information Value Date Recorded Sex Assigned at Not on file Gender Identity Not on file Sexual Orientation Not on file documented as of this encounter Last Filed Vital Signs Vital Sign Reading Time Taken Comments Blood Pressure - - Pulse - - Temperature 36.7 ??C (98.1 ??F) 03/31/2016 9:43 AM CS T Respiratory Rate - - Oxygen Saturation - - Inhaled Oxygen Concentration - - Weight 63 kg (139 lb) 03/31/2016 9:43 AM INCOME TAX PREPARER Height - - Body Mass Index - - documented in this encounter Progress Notes * Eddi Eric DO - 03/31/2016 10:02 AM CST Sick Visit Name: Lillie Ohara Age: 15 y.o. Accompanied By: Mother CC: Chief Complaint Patient presents with ??? Swelling Knee right knee pain and swelliing. started yesterday. Colp a pop in knee. Knee swollen. Painful to bendknee. HPI: R thigh pain. Walking to the class room back from the bathroom and heard a pop. Yesterday. Shesometime does hear pops in her knee and thought nothing of it. Walked back fine but then pain started when sitting. Not bad but then intense pain when she tried to get up. Hobbling around hurts the most to bend. Very stiff. Straight is painful but not as bad. Pain from almost hip to below knee. Slept fine. Occasional soreness but dances a lot and nothing more painful than that. Has had a very busy dance schedule recently competitions over the last week and weekend. Has not had any pain besides soreness in the R knee in the past. Some spasms in the thigh as well. Can bend at hip but knee is very painful to bend. Motrin and ice last night. Current Medications: Current Outpatient Prescriptions Medication Sig Dispense Refill ??? ferrous sulfate 325 (65 FE) MG tablet Take 1 Tab by mouth daily with food 30 Tab 4 ??? hydrocortisone (HYTONE) 2.5 % ointment Apply to affected area 2 times daily Apply sparingly to affected areas 30 g 0 ??? ibuprofen (MOTRIN) 200 MG tablet Take 400 mg by mouth every 12 hours as needed for Pain ??? norgestimate-ethinyl estradiol (MONONESSA) 0.25-35 MG-MCG tablet Take 1 Tab by mouth once daily1 Packet 11 No current facility-administered medications for this visit. Allergies: No Known Allergies PE: Temp 98.1 ??F (Temporal Artery) Wt 63 kg (139 lb) General alert, cooperative, no distress Skin Skin color, texture, turgor normal. No rashes or lesions Extremities Right leg- mild swelling to knee but not much. Very tender quad lateral- very hard downto knee. Attempt to bend or palpate knee caused intense pain. Trying to move knee cap caused intense pain as well. Able to sit normally and get off the table but walked stiff kneed. Not very tender at IT band. Impression / Plan: 1. R thigh pain- not a great mechanism for a knee sprain and not much swelling. Concerned about thethigh tightness and pain. Called and got them an appt with sports medicine today for evaluation. Follow up as needed. ME TAX PREPARER documented in this encounter Plan of Treatment Not on file documented as of this encounter Goals Goal Patient Goal Type Associated Problems Recent Progress Patient-Stated? Author Use safety retraint in car Lifestyle On track( 020 10:10 AM CDT) Gaye Dexter RN documented as of this encounter Visit Diagnoses Diagnosis Pain in joint, pelvic region and thigh, right- Primary documented in this encounter Care Teams Ornamental Iron Worker Relationship Specialty Start Date End Date Ivis Montana MD PCP - Pediatrics 02/23/09 11/10/19 Antonieta Moon MD PCP - General Pediatrics 01/05/11 09/17/23 documented as of this encounter
--- OUTSIDE RECORDS SUMMARY | 2024-02-08 00:40 | XMS_ITS | Encounter Summary ---
Author Organization [facility] Address [address] [facility] [place] [address] Care Team Providers Care Humanities Coordinator Name Role Phone Ivis Montana MD Unavailable Antonieta Moon MD Primary Care Provider [phone] Reason for Visit * Reason Onset Date Comments Complete Physical Exam 10/01/2015 Encounter Details Date Type Department Care Team (Late st Contact Info) Description 10/01/2015 4:00 PM CDT Office Visit [facility] Medical [facility] - Pediatrics [address] [place] [phone] [place] [address] [place] [phone] Encounter for routine child health examination without abnormal findings [Z00.129] (Primary Dx) Social History Tobacco Use Types Packs/Day Years Used Date Smoking Tobacco: Never Assessed Sex and Gender Information Value Date Recorded Sex Assigned at Not on file Gender Identity Not on file Sexual Orientation Not on file documented as of this encounter Last Filed Vital Signs Vital Sign Reading Time Taken Comments Blood Pressure 112/70 10/01/2015 4:19 PM CDT Pulse 80 10/01/2015 4:19 PM CDT Temperature - - Respiratory Rate - - Oxygen Saturation - - Inhaled Oxygen Concentration - - Weight 63.2 kg (139 lb 6.4 oz) 10/01/2015 4:19 P M CDT Height 175.9 cm (5' 9.25 ) 10/01/2015 4:19 PM CD T Body Mass Index 20.44 10/01/2015 4:19 PM CDT Body Mass Index Percentile 64.21% 10/01/2015 4:1 9 PM CDT Growth Chart: [facility] (Girls, 2- 20 Years) documented in this encounter Patient Instructions * Patient Instructions* Gaye Ying RN - 10/01/2015 4:20 PM CDT YOUR GROWING CHILD: 15 TO 17 YEARS Child???s Name: Lillie Ohara Today???s Date: 10/01/2015 BP 112/70 mmHg Pulse 80 Wt 63.231 kg (139 lb 6.4 oz) BMI 20.44 kg/m2 Wt Readings from Last 1 Encounters: 10/01/15 63.231 kg (139 lb 6.4 oz) (88 %*, Z = 1.16) * Growth percentiles are based on [facility] 2-20 Years data. 88%ile (Z=1.16) based on CDC 2-20 Years [id number] data using vitals from 10/01/2015. Ht Readings from Last 1 Encounters: 10/01/15 1.759 m (5' 9.25 ) (99 %*, Z = 2.37) * Growth percentiles are based on [facility] 2-20 Years data. 99%ile (Z=2.37) based on [facility] 2-20 Years [id number] data using vitals from 10/01/2015. IMMUNIZATIONS One of the best ways to insure continued good health for your child is through a program of regularimmunizations. Many contagious diseases have now been controlled by immunizations. We routinely immunize children at the time of their regular checkups. It is important for you to keep a record of all immunizations given. This information will be of value to you in the care of your child in the future. We will provide you a copy of your immunization record at each of your visits. WHAT TO EXPECT Talk with your child after school about their day, what they liked, what they didn???t like, and ifthey have any concerns. Talk with your child about what to do if they or someone they know is beingbullied. Speak with your child about what they might want to do after high school, where they might want to go to college, and if they have a career in mind. It???s a good idea to give your child chores to do around the house. Some age appropriate chores include: 1. Wash dishes 2. Prepare simple family meals 3. [place] leaves 4. Take the trash out for pick-up 5. Be responsible for feeding and watering the family pet 6. Keep bedroom and designates room in house clean 7. Vacuum individual rooms 8. Be responsible for homework 9. Help younger siblings with their chores Limit TV and electronic device time to 5-6 hours a day. Make sure that your child is active for at least 3 hours a day. Talk to your child about not using cigarettes, using drugs, or drinking alcohol. Make sure that youare familiar with the friends that they are spending time with. Teach your child the importance of delaying sexual behavior and make sure they know that they can ask you any questions that they make have about sexual behaviors. SAFETY POISON CONTROL: (PLEASE POST IN YOUR HOME OR ON YOUR PHONE) There are three ingredients for childhood injuries and accidents: the child, the object, and the environment in which the injury happens. Therefore, you must be aware of all three. Continue to be aware of poisonous hazards in your home, basement, and garage. Establish a plan for leaving the house in case of fire. Alert your children to be careful around strange animals, and to not bother any animal that is eating. Children should now know their name, address, and telephone number. Remind your child about not accepting rides or food from strangers. Helmets should be worn for anything that your child rides on that has wheels or could possibly fallout of or off of including but not limited to: bikes, skates, skate boards, scooters, horses, pogo sticks, etc. CAR SAFETY Please speak with your child about the importance of car safety. Make use that they wear seat beltsat all times while driving or being a passenger. Also speak to them about cell phone usage while driving. The texts and phone calls can WAIT. [place] law, effective October 02, 2005, says your child must be in a booster seat if they are ages 4 through 7 who weigh at least 40 pounds, unless they are 80 pounds or 4???9?? tall. DO NOT ALLOW ANYONE TO SMOKE AROUND YOUR CHILD. DIET Make sure that your child is eating breakfast in the morning high school guidance counselor. Encourage them to eat at least 3 servings of dairy a day and at least 5 serving of vegetables/fruits per day. Limit candy, soft drinks, and other high fat/calorie food and snacks. TEETH Your child should be established and receiving regular check-ups with a dentist. A daily routine ofbrushing at least twice a day needs to be in place by now. Frequently your child may need some supervision for proper technique. Also, your child should be flossing at least once daily. SLEEP Make sure that your child is getting at least 8-10 hours of sleep a night. Where can I go for more information? [employer] ( ) www.aap.org, HealthyChildren.org www.healthychildren.org Website and free downloadable theron for smartphones: http://www.[employer]/ and http://www.[employer]/ documented in this encounter Progress Notes * Eddi Eric, - 10/01/2015 4:31 PM CDT SPORTS WCC Reviewed Nurse's Sports Physical Note Phx: Medications: Mononessa, iron ROS: Stomachaches: No Headaches: No Constipation/Diarrhea: No Girls- Menarche yes about a year. Doing better with bleeding. Still going to flatwork folder this month. Sports: dance With exercise, Chest pain: No, SOB: No, Lightheaded, dizzy: No Joint problems: No Hx of concussion: No School: Grade:8, Grades: good Physical Exam: Wt Readings from Last 3 Encounters: 10/01/15 63.231 kg (139 lb 6.4 oz) (88 %*, Z = 1.16) 08/16/15 61.236 kg (135 lb) (86 %*, Z = 1.06) 05/11/15 59.875 kg (132 lb) (85 %*, Z = 1.04) * Growth percentiles are based on CDC 2-20 Years data. Ht Readings from Last 3 Encounters: 10/01/15 1.759 m (5' 9.25 ) (99 %*, Z = 2.37) 05/11/15 1.759 m (5' 9.25 ) (99 %*, Z = 2.50) 09/29/14 1.721 m (5' 7.75 ) (99 %*, Z = 2.23) * Growth percentiles are based on CDC 2-20 Years data. Blood pressure percentiles are 48% systolic and 62% diastolic based on 2000 NHANES data. 88%ile (Z=1.16) based on CDC 2-20 Years slkhbc-zcj-psg data using vitals from 10/01/2015. 99%ile (Z=2.37) based on CDC - Years wgalcqv-nkk-gjw data using vitals from 10/01/2015. BP 112/70 mmHg Pulse 80 Wt 63.231 kg (139 lb 6.4 oz) BMI 20.44 kg/m2 GENERAL: Alert, NAD EYES: PERRLA, EOMI, red reflex bilaterally EARS: TM's wnl NOSE: nasal passages clear NECK: supple, no masses, no lymphadenopathy RESP: clear to auscultation bilaterally CV: RRR, normal S1/S2, no murmurs, clicks, or rubs. ABD: soft, nontender, no masses, no hepatosplenomegaly, normal bowel sounds : normal female exam, Ruben 3 EXTREMITIES: Full range of motion of all extremities SPINE: Straight SKIN: no rashes or lesions Impression: Well child with normal growth and development. Plan: Anticipatory guidance discussed included nutrition, safety, dentist, limiting media, exercise. Vaccines: none BMI> 85%: No Classification of weight: healthy Follow up yearly. * Gaye Ying RN - 10/01/2015 4:21 PM CDT Nurse Sports Physical Screen Parental Concerns: none Diet: Milk 2%, 24 ounces per day. Vegetables: good, fruits: good, meats: good, Dental: Tooth brushing twice daily: Yes Regular dental visits: Yes documented in this encounter Plan of Treatment Not on file documented as of this encounter Goals Goal Patient Goal Type Associated Problems Recent Progress Patient-Stated? Author Use safety retraint in car Lifestyle On track( 020 10:10 AM CDT) No Gaye Westbrook, RN documented as of this encounter Visit Diagnoses Diagnosis Encounter for routine child health examination without abnormal findings [Z00.129]- Primary Routine infant or child health check documented in this encounter Care Teams Humanities Coordinator Relationship Specialty Start Date End Date Ivis Montana MD PCP - Pediatrics 02/23/09 11/10/19 Antonieta Moon MD PCP - General Pediatrics 01/05/11 09/17/23 documented as of this encounter
--- OUTSIDE RECORDS SUMMARY | 2024-02-08 00:40 | XMS_ITS | Encounter Summary ---
Author Organization [facility] Address [address] [place] [address] Care Team Providers Care Fitting Room Checker Name Role Phone Ivis Montana MD Unavailable Antonieta Moon MD Primary Care Provider [phone] Reason for Visit * Reason Onset Date Comments Complete Physical Exam 09/29/2014 Encounter Details Date Type Department Care Team (Late st Contact Info) Description 09/29/2014 3:00 PM CDT Office Visit [facility] Medical [facility] - Pediatrics [address] [place] [phone] Antonieta Moon MD [address] [place] [phone] Routine or child health check (Primary Dx); Need for prophylactic vaccination and inoculation against other viral diseases(V04.89) Social History Tobacco Use Types Packs/Day Years Used Date Smoking Tobacco: Never Assessed Sex and Gender Information Value Date Recorded Sex Assigned at Not on file Gender Identity Not on file Sexual Orientation Not on file documented as of this encounter Last Filed Vital Signs Vital Sign Reading Time Taken Comments Blood Pressure 116/70 09/29/2014 3:19 PM CDT Pulse 68 09/29/2014 3:19 PM CDT Temperature 37.2 ??C (99 ??F) 09/29/2014 3:19 PM CDT Respiratory Rate - - Oxygen Saturation - - Inhaled Oxygen Concentration - - Weight 58.4 kg (128 lb 12.8 oz) 09/29/2014 3:19 PM CDT Height 172.1 cm (5' 7.75 ) 09/29/2014 3:19 PM CD T Body Mass Index 19.73 09/29/2014 3:19 PM CDT Body Mass Index Percentile 63.72% 09/29/2014 3:1 9 PM CDT Growth Chart: CDC (Girls, 2- 20 Years) documented in this encounter Patient Instructions * Patient Instructions* Gaye Ying RN - 09/29/2014 3:20 PM CDT YOUR GROWING CHILD: 12 TO 14 YEARS Child???s Name: Lillie Ohara Today???s Date: 09/29/2014 BP 116/70 mmHg Pulse 68 Temp(Src) 99 ??F (Temporal Artery) Wt 58.423 kg (128 lb 12.8 oz) BMI 19.73 kg/m2 Wt Readings from Last 1 Encounters: 09/29/14 58.423 kg (128 lb 12.8 oz) (87 %*, Z = 1.13) * Growth percentiles are based on CDC 2-20 Years data. 87%ile (Z=1.13) based on CDC 2-20 Years zpujgt-nyi-bmn data using vitals from 09/29/2014. Ht Readings from Last 1 Encounters: 09/29/14 1.721 m (5' 7.75 ) (99 %*, Z = 2.23) * Growth percentiles are based on CDC 2-20 Years data. 99%ile (Z=2.23) based on CDC 2-20 Years mabbvhr-ylq-wil data using vitals from 09/29/2014. IMMUNIZATIONS One of the best ways to [...] they or someone they know is beingbullied. It???s a good idea to give your child chores to do around the house. Some age appropriate chores include: 1. Wash dishes 2. Prepare simple family meals 3. [place] leaves 4. Take the trash out for pick-up 5. Be responsible for feeding and watering the family pet 6. Keep bedroom and designates room in house clean 7. Vacuum individual rooms 8. Be responsible for homework Limit TV and electronic device time to [...] boards, scooters, horses, pogo sticks, etc. CAR SEATS Children should stay in a booster seat until adult belts fit correctly (usually when a child reaches about 4' 9 in height and is between 8 and 12 years of age). [place] and [place] law, effective October 02, 2005, says your child must be in a booster seat if they are ages 4 through 7 who weigh at least 40 pounds, unless they are 80 pounds or 4???9?? tall. BE SURE THE FAMILY RULE REGARDING CAR RESTRAINTS FOR ALL PASSENGERS IS ALWAYS OBEYED AND THAT YOUR CHILD IS IN AN APPROVED CAR SEAT. MAKE SURE YOUR CHILD IS SECURED IN THE CAR SEAT AND JUST IMPORTANTLY, MAKE SURE THE CAR SEAT IS PROPERLY SECURED IN THE CAR. DO NOT ALLOW ANYONE TO SMOKE AROUND YOUR CHILD. DIET Make sure that your child is eating breakfast in the morning preschool teacher. Encourage them to eat at least 3 [...] Where can I go for more information? [employer] ( ) www.aap.org, HealthyChildren.org www.healthychildren.org Website and free downloadable theron for smartphones: http://www.[employer]/ and http://www.Edgeio/ documented in this encounter Progress Notes * Antonieta Moon MD - 09/29/2014 3:34 PM CDT SPORTS W[facility] Reviewed Nurse's Sports Physical Note Phx: healthy Medications: none ROS: Stomachaches: No Headaches: No Constipation/Diarrhea: No Girls- Menarche yes, 2 days ago Sports: dance With exercise, Chest pain: No, SOB: No, Lightheaded, dizzy: No Joint problems: No Hx of concussion: No School: Grade:7, Grades: good Physical Exam: Wt Readings from Last 3 Encounters: 09/29/14 58.423 kg (128 lb 12.8 oz) (87 %*, Z = 1.13) 08/04/13 48.263 kg (106 lb 6.4 oz) (79 %*, Z = 0.79) 03/25/12 38.919 kg (85 lb 12.8 oz) (71 %*, Z = 0.57) * Growth percentiles are based on CDC 2-20 Years data. Ht Readings from Last 3 Encounters: 09/29/14 1.721 m (5' 7.75 ) (99 %*, Z = 2.23) 08/04/13 1.645 m (5' 4.75 ) (98 %*, Z = 2.04) 12/06/10 1.461 m (4' 9.5 ) (97 %*, Z = 1.94) * Growth percentiles are based on CDC 2-20 Years data. Blood pressure percentiles are 69% systolic and 65% diastolic based on 2000 NHANES data. 87%ile (Z=1.13) based on CDC 2-20 Years bkqlis-cfo-ktc data using vitals from 09/29/2014. 99%ile (Z=2.23) based on [facility] 2- Years blkfvat-rnv-twd data using vitals from 09/29/2014. BP 116/70 mmHg Pulse 68 Temp(Src) 99 ??F (Temporal Artery) Wt 58.423 kg (128 lb 12.8 oz) BMI 19.73 kg/m2 GENERAL: Alert, NAD EYES: PERRLA, EOMI, red reflex bilaterally EARS: TM's wnl NOSE: nasal passages clear NECK: supple, no masses, no lymphadenopathy RESP: clear to auscultation bilaterally CV: RRR, normal S1/S2, no murmurs, clicks, or rubs. ABD: soft, nontender, no masses, no hepatosplenomegaly, normal bowel sounds : normal female exam EXTREMITIES: Full range of motion of all extremities SPINE: Straight SKIN: no rashes or lesions Impression: 1. Well child with normal growth and development. Plan: Anticipatory guidance discussed included nutrition, safety, dentist,normal periods, exercise. Vaccines: HPV BMI> 85%: No Classification of weight: healthy Blood Pressure interpretation: normal Follow up in 1 year. * Gaye Ying RN - 09/29/2014 3:21 PM CDT Nurse Sports Physical Screen Parental Concerns: Just started first menstrual flow/cycle x2 days ago. Diet: Milk 2%, 28-32 ounces per day. Vegetables: good, fruits: good, meats: good, Dental: Tooth brushing twice daily: Yes Regular dental visits: Yes documented in this encounter Plan of Treatment Not on file documented as of this encounter Goals Goal Patient Goal Type Associated Problems Recent Progress Patient-Stated? Author Use safety retraint in car Lifestyle On track( 020 10:10 AM CDT) No Gaye Westbrook, JOSE documented as of this encounter Visit Diagnoses Diagnosis Routine or child health check- Primary Need for prophylactic vaccination and inoculation against other viral diseases(V04.89) Need for prophylactic vaccination and inoculation against other viral diseases documented in this encounter Care Teams Fitting Room Checker Relationship Specialty Start Date End Date Ivis Montana MD PCP - Pediatrics 02/23/09 11/10/19 Antonieta Moon MD PCP - General Pediatrics 01/05/11 09/17/23 documented as of this encounter
--- OUTSIDE RECORDS SUMMARY | 2024-02-08 00:40 | XMS_ITS | Clinical Summary ---
Author Organization [facility] Address [address] [place] [address] Care Team Providers Care Log Sawyer Name Role Phone Gloria Mancera MD Primary Care Provider Source Comments [facility],non-owned Affiliates and Associated Physician Practices is amultiple site organization consisting of ambulatory clinics and hospital sitesin [place], [place], [place] and [place]. This disclosure is being madepursuant to the Care Everywhere program and may not contain all information available regarding this patient. Last updated 17.[facility] Allergies No known active allergies Medications Be [...] PPD 10/30/2002 TDAP (7yrs+) 08/04/2013 VARICELLA 05/14/2007,02/03/2003 Family History Medical History Relation Name Comments None Known Father Allergies Paternal Grandmother Relation Name Status Comments Father Alive Mother Alive Paternal Grandmother Social History Tobacco Use Types Packs/Day Years [...] 09/18/2023 9:20 AM CDT Plan of Treatment Health Maintenance Due Date Last Done Comments HIV SCREENING 2016 CHLAMYDIA/GONORRHEA SCREENING 2017 HEPATITIS C SCREENING 10/24/2019 DTAP/TDAP/TD VACCINES (7 - T d or Tdap) 08/05/2023 08/04/2013, 05/14/2007, 05/01/2003, Additional history exists COVID-19 VACCINE (2023-2 5 season) 2023 02/07/2021, 06/01/2020, 05/11/2020 INFLUENZA VACCINE (#1) 2023 , 11/11/2019, 10/31/2010, Additional history exists PAP SMEAR 08/07/2025 08/07/2022 (Done Outside Per Patient) ZOSTER VACCINE (1 of 2) 10/29/2051 HEPATITIS B VACCINE Completed 07/31/2002, 2001, 2001 PNEUMOCOCCAL VACCINE Completed 10/30/2002, 10/30/2002, 05/01/2002, Additional history exists HIB VACCINE Completed 05/01/2003, 04/06, 05/01/2002, Additional history exists HPV VACCINE Completed 09/29/2014, 12/07, 10/31/2010 MENINGOCOCCAL VACCINE Completed 11/11/2019, 014 DEPRESSION SCREENING Completed 09/18/2023 Goals Goal Patient Goal Type Associated Problems [...] ORDERABLES from Last 3 Months Care Teams Log Sawyer Relationship Specialty Start Date End Date Gloria Mancera MD [address] [place] [address] PCP - General Internal Medicine 09/18/23
--- OUTSIDE RECORDS SUMMARY | 2024-02-08 00:41 | XMS_ITS | Encounter Summary ---
Author Organization [facility] Address [address] [place] [address] Care Team Providers Care Diesel Maintenance Electrician Name Role Phone Ivis Montana MD Unavailable Reason for Visit * Reason Comments Cough cough alot Encounter Details Date Type Department Care Team (Late st Contact Info) Description 05/31/2009 10:00 AM CDT Office Visit [facility] Medical [facility] - Pediatrics [address] [place] [phone] Ivis Montana MD [address] [place] [phone] URI (Upper Respiratory Infection) (Primary Dx) Social History Tobacco Use Types Packs/Day Years Used Date Smoking Tobacco: Never Assessed Sex and Gender Information Value Date Recorded Sex Assigned at Not on file Gender Identity Not on file Sexual Orientation Not on file documented as of this encounter Last Filed Vital Signs Vital Sign Reading Time Taken Comments Blood Pressure - - Pulse - - Temperature 36.7 ??C (98 ??F) 05/31/2009 10:22 AM CDT Respiratory Rate - - Oxygen Saturation - - Inhaled Oxygen Concentration - - Weight 30.2 kg (66 lb 9.6 oz) 05/31/2009 10:22 A M CDT Height - - Body Mass Index - - documented in this encounter Progress Notes * Ivis Montana MD - 05/31/2009 10:27 AM CDT SUBJECTIVE: Lillie Ohara is a 8 y.o. female brought by mother with complaints of congestion, sneezing, sore throat, productive cough, fever of 100 F today Sore Throat :Yes Fever: Yes reduced activity, normal appetite, normal fluid intake and normal sleep. OBJECTIVE: Temp 98 ??F Wt 30.21 kg (66 lb 9.6 oz) General appearance: alert, well appearing, and in no distress. Ears: bilateral TM's and external ear canals normal Nose: normal and patent, no erythema, discharge or polyps Oropharynx: mucous membranes moist, pharynx normal without lesions Neck: bilateral symmetric shoddy anterior adenopathy Lungs: clear to auscultation, no wheezes, rales or rhonchi, symmetric air entry Heart - regular rate and rhythm, normal S1 and S2, no murmurs ASSESSMENT: viral upper respiratory illness PLAN: See orders for this visit as documented in the electronic medical record Symptomatic therapy suggested: return office visit prn if symptoms persist or worsen. Dimetapp cough and cold prn for a few days documented in this encounter Plan of Treatment Not on file documented as of this encounter Visit Diagnoses Diagnosis URI (upper respiratory infection)- Primary Acute upper respiratory infections of unspecified site documented in this encounter Care Teams Diesel Maintenance Electrician Relationship Specialty Start Date End Date Ivis Montana MD PCP - Pediatrics 02/23/09 11/10/19 documented as of this encounter
--- OUTSIDE RECORDS SUMMARY | 2024-02-08 00:41 | XMS_ITS | Encounter Summary ---
Author Organization [facility] Address [address] [place] [address] Care Team Providers Care Warehouse Supervisor 3Rd Shift Name Role Phone Ivis Montana MD Unavailable Reason for Visit * Reason Comments Insect bite Encounter Details Date Type Department Care Team (Late Contact Info) Description 11/15/2009 10:40 AM CDT Office Visit [facility] Medical [facility] - Pediatrics [address] [place] [phone] Ivis Montana MD [address] [place] [phone] Bullous impetigo (Primary Dx) Social History Tobacco Use Types [...] - - Temperature 36.6 ??C (97.9 ??F) 11/15/2009 10:56 AM C DT Respiratory Rate - - Oxygen Saturation - - Inhaled Oxygen Concentration - - Weight - - Height - - Body Mass Index - - documented in this encounter Progress Notes * Ivis Montana MD - 11/15/2009 11:00 AM CDT SUBJECTIVE: DAVE OHARA, 9 y.o., female here with mother for evaluation of a rash. Rash has been present for 2weeks. It was originally a mosquito bite, that was very pruritic, it was scratched until it bled. Now the bite has gotten bigger, and the scabs have spread. Location of rash is posterior right knee. Mom has been cleaning it with hydrogen peroxide and covering it at school with polysporin bandaids, leaving it open at night. Rash has spread: Yes Pruritic: Yes, originally, not now though Painful: No Transient: No Fever: Yes, had one 5 days ago, highest temp was 101F has since resolved. OBJECTIVE: PE: Temp(Src) 97.9 ??F (Oral) Alert, NAD Skin: There is a 2cm round erythematous lesion located at the posterior right knee with honey crusting, there are also scattered 1-5mm erythematous eschars as well as 1mm papules. There are no umbilications in the papules. Heart: Regular rate and rhythm, no murmur Lungs: CTA bilaterally, no wheeze or rales IMPRESSION: Bullous Impetigo PLAN: Mupirocin cream called into pharmacy. Mother and patient instructed to apply cream as directed and cover lesions while at school. RTC if symptoms persist or worsen or new symptoms arise. documented in this encounter Plan of Treatment Not on file documented as of this encounter Visit Diagnoses Diagnosis Bullous impetigo- Primary Impetigo documented in this encounter Care Teams Warehouse Supervisor 3Rd Shift Relationship Specialty Start Date End Date Ivis Montana MD PCP - Pediatrics 02/23/09 11/10/19 documented as of this encounter
--- OUTSIDE RECORDS SUMMARY | 2024-02-08 00:41 | XMS_ITS | Encounter Summary ---
Author Organization [facility] Address [address] [place] [address] Care Team Providers Care Probate Clerk Name Role Phone Trever Jacques MD Unavailable Encounter Details Date Type Department Care Team (Late st Contact Info) Description 11/22/2010 Orders Only [facility] - Pediatrics [address] [place] [phone] Trever Jacques MD [address] [place] [phone] Streptococcal sore throat Social History Tobacco Use Types Packs/Day Years Used Date Smoking Tobacco: Never Assessed Sex and Gender Information Value Date Recorded Sex Assigned at Not on file Gender Identity Not on file Sexual Orientation Not on file documented as of this encounter Progress Notes * Gaye Ying, JOSE - 11/24/2010 10:51 AM CDTQuick Note: Mom returned call. Informed Mom of need for antibiotics. Verbalized understanding and willingness to comply. * Gaye Ying, JOSE - 11/24/2010 10:42 AM CDTQuick Note: Attempted to reach parent by calling home number and step father's cell number to report culture result and need for antibiotic treatment. No answer at either number. Detailed message left reporting the result and need for antibiotics and to have parent call office to confirm receipt of messages. * Trever Jacques MD - 11/24/2010 9:56 AM CDTAddended by: TREVER JACQUES on: 11/24/2010 09:56 AM Modules accepted: Orders * Trever Jacques MD - 11/24/2010 9:55 AM CDTQuick Note: Please call the parent and let him/her know the results of throat culture show sterp. I am calling in an antibiotic for her. documented in this encounter Plan of Treatment Not on file documented as of this encounter Procedures Procedure Name Priority Date/Time Associated Diagnosis Comments CULTURE THROAT 11/22/2010 11:14 AM CDT documented in this encounter Results * (ABNORMAL) CULTURE THROAT (11/22/2010 11:14 AM CDT) Culture (A) [facility] Comment: ??CULTURE, THROAT ?MICRO NUMBER: ?[id number] ??TEST STATUS: ? FINAL ??SPECIMEN SOURCE: ?? THROAT ??SPECIMEN QUALITY: ??ADEQUATE ??RESULT: ?Light growth of Group A Streptococcus ? Beta-hemolytic Streptococci are ? predictably susceptible to penicillin ? and other beta-lactams. ? Susceptibility testing not routinely ? performed. ??COMMENT: ? Normal oropharyngeal kourtney also present. Test Performed at: [facility] [address] ??[phone] KARISSA BENITEZ DO 11/22/2010 11:1 4 AM CDT 11/23/2010 1:20 AM CDT Trever Jacques MD LAB - MICROBIOLOGY O RDERABLES Performing Organization Address City/State/[facility] Co de Phone Number [facility] [address] [place] [address] documented in this encounter Visit Diagnoses Diagnosis Streptococcal sore throat- Primary documented in this encounter Care Teams Probate Clerk Relationship Specialty Start Date End Date Trever Jacques MD PCP - Pediatrics 02/23/09 11/10/19 documented as of this encounter
--- OUTSIDE RECORDS SUMMARY | 2024-02-08 00:41 | XMS_ITS | Encounter Summary ---
Author Organization [facility] Address [address] [place] [address] Care Team Providers Care Mixing House Operator Name Role Phone Trever Jacques MD Unavailable Reason for Visit * Reason Comments Throat Problem sounds like laryngit is Sore Throat Fever Encounter Details Date Type Department Care Team (Late st Contact Info) Description 11/22/2010 10:30 AM CDT Office Visit [facility] - Pediatrics [address] [place] [phone] Trever Jacques MD [address] [place] [phone] Acute pharyngitis (Primary Dx) Social History Tobacco Use Types Packs/Day Years Used Date Smoking Tobacco: Never Assessed Sex and Gender Information Value Date Recorded Sex Assigned at Not on file Gender Identity Not on file Sexual Orientation Not on file documented as of this encounter Last Filed Vital Signs Vital Sign Reading Time Taken Comments Blood Pressure - - Pulse - - Temperature 37.1 ??C (98.8 ??F) 11/22/2010 1 0:45 AM CDT Respiratory Rate - - Oxygen Saturation - - Inhaled Oxygen Concentration - - Weight 40.6 kg (89 lb 9.6 oz) 1 10:45 AM CDT Height 148 cm (4' 10.25 ) 11/22/2010 10 :45 AM CDT Body Mass Index 18.57 11/22/2010 10:45 AM CDT Body Mass Index Percentile 80.74% 11/22 10:45 AM CDT Growth Chart: [facility] (Girls, 2- 20 Years) documented in this encounter Progress Notes * Trever Jacques MD - 11/22/2010 11:12 AM CDTAddended by: TREVER JACQUES on: 11/22/2010 11:12 AM Modules accepted: Orders * Trever Jacques MD - 11/22/2010 10:46 AM CDT SUBJECTIVE: Lillie Ohara is a 10 y.o. female brought by mother with complaints of sore throat, cough described as barking, headache, fever, chills, pain while swallowing and hoarseness for 2 days Sore Throat :Yes Fever: Yes reduced activity, reduced appetite, normal fluid intake and diarrhea. OBJECTIVE: Temp(Src) 98.8 ??F (Temporal) Wt 89 lb 9.6 oz (40.642 kg) BMI 18.57 kg/m2 General appearance: alert, well appearing, and in no distress. Ears: bilateral TM's and external ear canals normal Nose: normal and patent, no erythema, discharge or polyps Oropharynx: erythematous and mucous membranes moist, pharynx normal without lesions Neck: supple, no significant adenopathy Lungs: clear to auscultation, no wheezes, rales or rhonchi, symmetric air entry Heart - regular rate and rhythm, normal S1 and S2, no murmurs ASSESSMENT: viral pharyngitis PLAN: Throat culture sent See orders for this visit as documented in the electronic medical record Symptomatic therapy suggested: push fluids, rest and return office visit prn if symptoms persist orworsen. documented in this encounter Plan of Treatment Not on file documented as of this encounter Procedures Procedure Name Priority Date/Time Associated Diagnosis Comments CULTURE RESPIRATORY Routine 11/22/2010 1 1:14 AM CDT Acute pharyngitis STREP A SCREEN - POINT OF CARE (AMB) Routine 11/22/2010 11:09 AM CDT Acute pharyngitis documented in this encounter Results * CULTURE RESPIRATORY (11/22/2010 11:14 AM CDT) Culture [facility] Comment: ??CULTURE, SPUTUM/LOWER RESPIRATORY ?MICRO NUMBER: ?[id number] ??TEST STATUS: ? FINAL ??SPECIMEN SOURCE: ?? THROAT ??SPECIMEN QUALITY: ??ADEQUATE ??GRAM STAIN: ?Few epithelial cells ? No white blood cells seen ? Mixed bacterial kourtney ? Gram stain indicates that specimen is ? account maintenance representative of lower respiratory tract ??RESULT: ?Test cancelled per client request. Test Performed at: [facility] [address] [place] [address] ??[phone] KARISSA BENITEZ DO ENTIRE THROAT (SURFACE REGION OF NECK) / Unknown 11/22/2010 11:14 AM CDT 11/23/2010 1:20 AM CDT Trever Jacques MD LAB - MICROBIOLOGY O RDERABLES Performing Organization Address City/State/[facility] Co de Phone Number [facility] [address] [place] [address] * STREP A SCREEN - POINT OF CARE (AMB) (11/22/2010 11:09 AM CDT) Strep A Rapid POCT negative NEGATIVE - POSITIVE Strep A Internal Control NEGATIVE - POSITIVE Throat swab (specimen) ENTIRE THROAT (SURFACE REGION OF NECK) / Unknown 11/22/2010 11:09 AM CDT Trever Jacques MD LAB - POINT OF CARE ORDERABLES documented in this encounter Visit Diagnoses Diagnosis Acute pharyngitis- Primary documented in this encounter Care Teams Mixing House Operator Relationship Specialty Start Date End Date Trever Jacques MD PCP - Pediatrics 02/23/09 11/10/19 documented as of this encounter
--- OUTSIDE RECORDS SUMMARY | 2024-02-08 00:41 | XMS_ITS | Encounter Summary ---
Author Organization [facility] Address [address] [place] [address] Care Team Providers Care Filler Shaker Name Role Phone Ivis Montana MD Unavailable Reason for Visit * Reason Comments Imm Inj Encounter Details Date Type Department Care Team (Latest Contact Info) Description 12/27/2010 3:00 PM CASTING ASSOCIATE Clinical Support [facility] Medical [facility] - Pediatrics [address] [place] [phone] Need for prophylactic vaccination and inoculation against other viral diseases Social History Tobacco Use Types Packs/Day Years Used Date Smoking Tobacco: Never Assessed Sex and Gender Information Value Date Recorded Sex Assigned at Not on file Gender Identity Not on file Sexual Orientation Not on file documented as of this encounter Plan of Treatment Not on file documented as of this encounter Visit Diagnoses Diagnosis Need for prophylactic vaccination and inoculation against other viral diseases(V04.89)- Primary Need for prophylactic vaccination and inoculation against other viral diseases documented in this encounter Care Teams Filler Shaker Relationship Specialty Start Date End Date Ivis Montana MD PCP - Pediatrics 02/23/09 11/10/19 documented as of this encounter
--- OUTSIDE RECORDS SUMMARY | 2024-02-08 00:41 | XMS_ITS | Encounter Summary ---
Author Organization [facility] Address [address] [place] [address] Care Team Providers Care Avid Editor Name Role Phone Ivis Montana MD Unavailable Reason for Visit * Reason Comments URI sneezing, runny nose with clear exudate, cough x3 days Fever temps less than or e qual to 101 x3 days Encounter Details Date Type Department Care Team (Late st Contact Info) Description 04/26/2010 2:10 PM CDT Office Visit [facility] Medical [facility] - Pediatrics [address] [place] [phone] Ivis Montana MD [address] [place] [phone] URI (upper respiratory infection) (Primary Dx) Social History Tobacco Use Types Packs/Day Years Used Date Smoking Tobacco: Never Assessed Sex and Gender Information Value Date Recorded Sex Assigned at Not on file Gender Identity Not on file Sexual Orientation Not on file documented as of this encounter Last Filed Vital Signs Vital Sign Reading Time Taken Comments Blood Pressure - - Pulse - - Temperature 36.6 ??C (97.8 ??F) 04/26/2010 2:32 PM CD T Respiratory Rate - - Oxygen Saturation - - Inhaled Oxygen Concentration - - Weight 36.6 kg (80 lb 9.6 oz) 04/26/2010 2:32 PM CDT Height - - Body Mass Index - - documented in this encounter Progress Notes * Ivis Montana MD - 04/26/2010 2:34 PM CDT DAVE OHARA is a 9 y.o. female accompanied to office today by Mom for evaluation of uri sx and fevers x3 days. Temps less than or equal to 101. Last dose of multisx cough med this am at 0800. Has had some sore throat with coughing. Headache yesterday. Feels a little better today. OBJECTIVE: Temp(Src) 97.8 ??F (Temporal Artery) Wt 80 lb 9.6 oz (36.56 kg) General appearance: alert, well appearing, and [...] site documented in this encounter Care Teams Avid Editor Relationship Specialty Start Date End Date Ivis Montana MD PCP - Pediatrics 02/23/09 11/10/19 documented as of this encounter
--- OUTSIDE RECORDS SUMMARY | 2024-02-08 00:41 | XMS_ITS | Encounter Summary ---
Author Organization [facility] Address [address] [place] [address] Care Team Providers Care Cafeteria Worker Name Role Phone Ivis Montana MD Unavailable Antonieta Moon MD Primary Care Provider [phone] Reason for Visit * Reason Comments Sore Throat Sore throat started last night. It hurts to swallow and is sore when talking. Encounter Details Date Type Department Care Team (Late st Contact Info) Description 03/22/2011 10:30 AM AP PROCESSOR Office Visit [facility] - Pediatrics [address] [place] [phone] Antonieta Moon MD [address] [place] [phone] Streptococcal sore throat (Primary Dx) Social History Tobacco Use Types Packs/Day Years Used Date Smoking Tobacco: Never Assessed Sex and Gender Information Value Date Recorded Sex Assigned at Not on file Gender Identity Not on file Sexual Orientation Not on file documented as of this encounter Last Filed Vital Signs Vital Sign Reading Time Taken Comments Blood Pressure - - Pulse - - Temperature 36 ??C (96.8 ??F) 03/22/2011 11:19 AM AP PROCESSOR Respiratory Rate - - Oxygen Saturation - - Inhaled Oxygen Concentration - - Weight 40.2 kg (88 lb 9.6 oz) 03/22/2011 11:19 A M AP PROCESSOR Height - - Body Mass Index - - documented in this encounter Progress Notes * Antonieta Moon MD - 03/24/2011 7:01 PM CST Lillie Ohara. 10 y.o., female, here for evaluation of sore throat. Symptoms started last night. Fever: subjective Runny Nose: No, Congestion: No Cough: No, dry Headache: No Abd Pain: No Rash: No Sleep: fair Appetite: fair Fluids: good Sick contacts with Strep: No PE: Temp(Src) 96.8 ??F (Temporal Artery) Wt 88 lb 9.6 oz (40.189 kg) Alert NAD SHEENT: Skin: no observable rash Throat:injected Tonsils:red, inflamed Neck: supple, +LAD Heart: normal S1, S2, no murmurs or gallops. Lungs: Clear to auscultation Rapid Strep: positive Impression: Strep Pharyngitis Plan: Rx: amox as per orders Fever control and encourage fluids. Follow up prn. PROCESSOR documented in this encounter Plan of Treatment Not on file documented as of this encounter Procedures Procedure Name Priority Date/Time Associated Diagnosis Comments STREP A SCREEN - POINT OF CARE (AMB) Routine 03/22/2011 9:25 AM AP PROCESSOR Streptococcal sore throat documented in this encounter Results * (ABNORMAL) STREP A SCREEN - POINT OF CARE (AMB) (03/22/2011 9:25 AM AP PROCESSOR) Strep A Rapid POCT Positive( A) Negative Strep A Internal Control NEGATIVE - POSITIVE Throat swab (specimen) ENTIRE THROAT (SURFACE REGION OF NECK) / Unknown 03/22/2011 9:25 AM AP PROCESSOR Antonieta Moon MD LAB - POINT OF CARE ORDERABLES documented in this encounter Visit Diagnoses Diagnosis Streptococcal sore throat- Primary documented in this encounter Care Teams Cafeteria Worker Relationship Specialty Start Date End Date Ivis Montana MD PCP - Pediatrics 02/23/09 11/10/19 Antonieta Moon MD PCP - General Pediatrics 01/05/11 09/17/23 documented as of this encounter
--- OUTSIDE RECORDS SUMMARY | 2024-02-08 00:41 | XMS_ITS | Encounter Summary ---
Author Organization [facility] Address [address] [place] [address] Care Team Providers Care Tree Warden Name Role Phone Ivis Montana MD Unavailable Antonieta Moon MD Primary Care Provider [phone] Encounter Details Date Type Department Care Team (Late st Contact Info) Description 05/03/2005 Orders Only [facility] - Laboratory [address] [place] [id number] ProviderShen MD Social History Tobacco Use Types Packs/Day Years Used Date Smoking Tobacco: Never Assessed Sex and Gender Information Value Date Recorded Sex Assigned at Not on file Gender Identity Not on file Sexual Orientation Not on file documented as of this encounter Plan of Treatment Not on file documented as of this encounter Procedures Procedure Name Priority Date/Time Associated Diagnosis Comments GROSS + MICRO EXAM [id number] 05/03/2005 10 :42 AM AIR COMPRESSOR MECHANIC documented in this encounter Results * GROSS + MICRO EXAM (05/03/2005 10:42 AM AIR COMPRESSOR MECHANIC) Result CASE NUMBER [id number] [facility] PATH REPORT Comment: ORDERING PHYSICIAN ??MATTHEW [...] and interpreted by the attending (teaching) pathologist. Tree Expert ? Mel Sheridan RESIDENT IN PATHOLOG Lebron Stevens M.D. PATHOLOGIST ?Bernard Lino M.D. ELECTRONICALLY CELSA BERNARD LINO S MISCELLANEOUS SAMPLES / Unknown 05/03/2005 10:42 AM AIR COMPRESSOR MECHANIC 05/03/2005 12:08 PM AIR COMPRESSOR MECHANIC Historical Provider LAB - PATHOLOGY/C YTOLOGY ORDERABLES [facility] PATH REPORT documented in this encounter Visit Diagnoses Not on filedocumented in this encounter Care Teams Tree Warden Relationship Specialty Start Date End Date Ivis Montana MD PCP - Pediatrics 02/23/09 11/10/19 Antonieta Moon MD PCP - General Pediatrics 01/05/11 09/17/23 documented as of this encounter
--- OUTSIDE RECORDS SUMMARY | 2024-02-08 00:41 | XMS_ITS | Encounter Summary ---
Author Organization [facility] Address [address] [place] [address] Care Team Providers Care Occupational Therapy Instructor Name Role Phone Ivis Montana MD Unavailable Reason for Visit * Reason Comments Complete Physical Exam annual well check ; 10 y/o Encounter Details Date Type Department Care Team (Late st Contact Info) Description 10/31/2010 4:00 PM CDT Office Visit [facility] - Pediatrics [address] [place] [phone] Ivis Montana MD [address] [place] [phone] Routine infant or child health check (Primary Dx); Need vaccination-viral disease; Need for prophylactic vaccination and inoculation against influenza Social History Tobacco Use Types Packs/Day Years Used Date Smoking Tobacco: Never Assessed Sex and Gender Information Value Date Recorded Sex Assigned at Not on file Gender Identity Not on file Sexual Orientation Not on file documented as of this encounter Last Filed Vital Signs Vital Sign Reading Time Taken Comments Blood Pressure 106/54 10/31/2010 3:38 PM CDT Pulse 76 10/31/2010 3:38 PM CDT Temperature 37.1 ??C (98.8 ??F) 10/31/2010 3:38 PM CDT Respiratory Rate - - Oxygen Saturation - - Inhaled Oxygen Concentration - - Weight 39.8 kg (87 lb 12.8 oz) 10/31/2010 3:38 P M CDT Height 144.1 cm (4' 8.75 ) 10/31/2010 3:38 PM CD T Body Mass Index 19.17 10/31/2010 3:38 PM CDT Body Mass Index Percentile 85.51% 10/31/2010 3:3 8 PM CDT Growth Chart: [facility] (Girls, 2- 20 Years) documented in this encounter Patient Instructions * Patient Instructions* Gaye Ying RN - 10/31/2010 4:16 PM CDT Wt Readings from Last 3 Encounters: 10/31/10 87 lb 12.8 oz (39.826 kg) (92.97%) 04/26/10 80 lb 9.6 oz (36.56 kg) (92.23%) 05/31/09 66 lb 9.6 oz (30.21 kg) (87.14%) Ht Readings from Last 3 Encounters: 10/31/10 4' 8.75 (1.441 m) (95.75%) Body mass index is 19.17 kg/(m^2). 85.57% of growth percentile based on BMI-for-age. 92.97% of growth percentile based on [id number]. 95.75% of growth percentile based on [id number]. Return in 2 months for Gardasil #2 documented in this encounter Progress Notes * Ivis Montana MD - 10/31/2010 3:38 PM CDT Lillie Ohara is a 10 y.o. female accompanied to office today by Mom for annual well check. CONCERNS: Left ankle twisted yesterday while wearing high heeled shoes. Painful and swollen with protrustion. DIET: Good eater. Will eat fruits, veggies, meats. 24-32 oz/ 2% milk/day. DEVELOPMENT: Currently in 3 rd grade. Enjoys school. Participates in dance, piano. Just finished soccer. Wears seatbelt in automobile. Brushes teeth BID usually. . PMH: Past Medical History Diagnosis Date ??? Routine Infant or Child Health Check 04/08/08 ??? Unspecified Pre-Operative Examination 06/11/07 dental ??? Injury of Face and Neck 04/27/08 OBJECTIVE: Vitals: 10/31/10 1538 BP: 106/54 Pulse: 76 Temp: 98.8 ??F Weight: 87 lb 12.8 oz (39.826 kg) GENERAL: Well nourished and developed, healthy appearing EYES: PERRLA, EOMI EARS: TM's wnl THROAT: tonsils normal, no erythema, dentition normal NOSE: nasal passages clear NECK: supple, no masses, no lymphadenopathy RESP: clear to auscultation bilaterally CV: RRR, normal S1/S2, no murmurs, clicks, or rubs. ABD: soft, nontender, no masses, no hepatosplenomegaly : normal female exam MS: spine straight, FROM all joints SKIN: Normal with no acne noted. Neuro: normal ASSESSMENT: Well Child PLAN: Plans per electronic records Immunnizations per electronic medical record. Discussed weight management: no Acne treatment discussed: no Follow up yearly documented in this encounter Plan of Treatment Not on file documented as of this encounter Visit Diagnoses Diagnosis Routine infant or child health check- Primary Need for prophylactic vaccination and inoculation against other viral diseases(V04.89) Need for prophylactic vaccination and inoculation against other viral diseases Need for prophylactic vaccination and inoculation against influenza documented in this encounter Care Teams Occupational Therapy Instructor Relationship Specialty Start Date End Date Ivis Montana MD PCP - Pediatrics 02/23/09 11/10/19 documented as of this encounter
--- OUTSIDE RECORDS SUMMARY | 2024-02-08 00:41 | XMS_ITS | Encounter Summary ---
Author Organization [facility] Address [address] [place] [address] Care Team Providers Care Studio Technician Name Role Phone Ivis Montana MD Unavailable Reason for Referral * Evaluate & Treat Specialty Diagnoses / Procedures Referred By Neda gutierrez Referred To Contact [facility] [address] [place] [phone] Referral ID Status Reason Start Date Expiration Date Visits Re quested Visits Authorized Reason for Visit * Reason Comments Anxiety over the last month Encounter Details Date Type Department Care Team (Late st Contact Info) Description 12/06/2010 3:30 PM CDT Office Visit [facility] Medical [facility] - Pediatrics [address] [place] [phone] Ivis Montana MD [address] [place] [phone] Anxiety (Primary Dx) Social History Tobacco Use Types Packs/Day Years Used Date Smoking Tobacco: Never Assessed Sex and Gender Information Value Date Recorded Sex Assigned at Not on file Gender Identity Not on file Sexual Orientation Not on file documented as of this encounter Last Filed Vital Signs Vital Sign Reading Time Taken Comments Blood Pressure 114/62 12/06/2010 3:33 PM CDT Pulse 80 12/06/2010 3:33 PM CDT Temperature 36.8 ??C (98.3 ??F) 12/06/2010 3:33 PM CD T Respiratory Rate - - Oxygen Saturation - - Inhaled Oxygen Concentration - - Weight 40.8 kg (90 lb) 12/06/2010 3:33 PM CDT Height 146.1 cm (4' 9.5 ) 12/06/2010 3:33 PM CDT Body Mass Index 19.14 12/06/2010 3:33 PM CDT Body Mass Index Percentile 84.78% 12/06/2010 3:3 3 PM CDT Growth Chart: [facility] (Girls, 2- 20 Years) documented in this encounter Patient Instructions * Patient Instructions* Ivis Montana MD - 12/06/2010 3:42 PM CDT ANXIETY IN CHILDREN Anxiety is a normal part of childhood, and every child goes through phases. The difference between a phase and an anxiety disorder is that a phase is temporary and usually harmless. Children who suffer from an anxiety disorder experience fear, nervousness, and shyness, and they start to avoid places and activities. A child who sees a scary movie and then has trouble falling asleep or has a similar temporary fear can be reassured and comforted. But that is not enough to help a child with an anxiety disorder get past his or her fear and anxiety. Anxiety disorders affect one in eight children. Research has shown that if left untreated, childrenwith anxiety disorders are at higher risk to perform poorly in school, miss out on important socialexperiences, and engage in substance abuse. Anxiety disorders also often co-occur with other disorders such as depression, eating disorders, and attention-deficit/hyperactivity disorder (ADHD). The good news is that with treatment and your support, your child can learn how to successfully manage the symptoms of an anxiety disorder and live a normal childhood. Here are things you can do at home to help your child manage his or her anxiety disorder: Pay attention to your child???s feelings. Stay calm when your child becomes anxious about a situation or event. Recognize and praise small accomplishments. Don???t punish mistakes or lack of progress. Be flexible and try to maintain a normal routine. Modify expectations during stressful periods. Plan for transitions (For example, allow extra time in the morning if getting to school is difficult). Keep in mind that your child???s anxiety disorder diagnosis is not a sign of poor parenting. It mayadd stress to family life, however. It is helpful to build a support network of relatives and friends. The following books are suggested for parents and children to help them cope with anxiety. READINGS FOR FAMILIES: 1- Helping your anxious child: A step by step guide for parents. Dr Jere Dick 2- Freeing your child from anxiety Dr Felicia Denny READINGS FOR CHILDREN: 1- Up and down Worry katharine Frances 2- What to do when you are scared and worried Alfredo Nicolas WEBSITE: http://www.[email or web address].net/ SIDE EFFECTS OF Z[place]: COMMON: ?? Gastrointestinal: Constipation (3% to 8% ), Diarrhea (13% to 24% ), Indigestion (6% to 13% ), Nausea (13% to 30% ), Nausea and vomiting (2% to 30% ) ?? Musculoskeletal: Myalgia (1% ) ?? Neurologic: Dizziness (6% to 17% ), Headache (25%), Insomnia (12% to 28% ), Somnolence (2% to 15% ), Tremor (5% to 11% ) ?? Reproductive: Abnormal ejaculation (7% to 19% ), Reduced libido (up to 11% ) ?? Other: Fatigue (10% to 16% ) ? SERIOUS: ? Dermatologic: Manning-Gerry syndrome ?? Endocrine metabolic: Hyponatremia ?? Immunologic: Anaphylaxis ?? Musculoskeletal: Rhabdomyolysis ?? Neurologic: Seizure (rare ) ?? Psychiatric: Depression, exacerbation, Coty (rare ), Suicidal thoughts (rare ), Suicide (rare ) ?? Other: Serotonin syndrome documented in this encounter Progress Notes * Ivis Montana MD - 12/06/2010 3:34 PM CDT SUBJECTIVE: Lillie Ohara is a 10 y.o. female accompanied to office today for concerns about anxiety.Mom says that pt has always been emotional but has noticed that it is getting worse over the last month. Upsets easily. Teacher has noticed some of this as well. She worries about every thing grades, school and dance. She wants to be perfect in every thing , door has to be shut in a certain way. She is very planner She does worry about her mom getting sick or not being there. Family History: No history of depression or anxiety Social History: Biological father sees her two to three times a month. She lives with stepfather and mother and is very close to her adopted mother. OBJECTIVE: BP 114/62 Pulse 80 Temp(Src) 98.3 ??F (Temporal Artery) Wt 90 lb (40.824 kg) BMI 19.14 kg/m2 General appearance: alert, well appearing, and [...] rhythm, normal S1 and S2, no murmurs Abdomen:NT, ND, normal BS's, no HSM Skin:Skin color, texture, turgor normal. No rashes or lesions ASSESSMENT: Anxiety PLAN: Zoloft 25 mg a day, may increase to 50 mg after a week Referred for counseling F/u in one week * Ivis Montana MD - 12/06/2010 3:31 PM CDT .an documented in this encounter Plan of Treatment Scheduled Referrals Name Type Priority Associated Diagnoses Order Schedule AMB REFERRAL TO BEHAVIORAL HEALTH Outpatient Referral Routine Anxiety Ordered: 12/06/2010 documented as of this encounter Visit Diagnoses Diagnosis Anxiety- Primary Anxiety state, unspecified documented in this encounter Care Teams Studio Technician Relationship Specialty Start Date End Date Ivis Montana MD PCP - Pediatrics 02/23/09 11/10/19 documented as of this encounter
== END 2024-02-01 09:40 | disposition home or self-care (01) ==
PROVIDERS: PCP Pediatrics; Visit Provider Obstetrics & Gynecology
PROC: (CPT 49320; principal; 2024-02-01 07:30)
PROC: 0U5B8ZZ Destruction of Endometrium, Via Natural or Artificial Opening Endoscopic (ICD-10-PCS; CPT 58563; 2024-02-01 07:30)
DX: N80.3C1 Endometriosis of the right uterosacral ligament, unspecified depth (principal); N80.101 Endometriosis of right ovary, unspecified depth; Z79.891 Long term (current) use of opiate analgesic
CPT/HCPCS: 58662; 58558; 88305; A9270; J0330; J1100; J1885; J2003; J2250; J2405; J2704; J3010; J7030; J7120